=== PATIENT | female | born 1950 | race Caucasian/White ===

== ENCOUNTER 2016-05-17 19:49 | Inpatient (IN) | payer MEDICARE, OTHER ==
[2016-05-17 19:49] VITALS: BMI 25.7
[2016-05-17] MEDS ORDERED: Sodium Chloride 0.9% 1,000 ML IV STA (20:54)
[2016-05-17 21:37] LABS: BASO % 0.7 % (0.0-2.0); EOS # 0.2 K/uL (0.0-0.7); EOS % 3.3 % (0.0-4.0); HEMATOCRIT 31.9 % (34.0-47.0); LYMPH # 0.3 K/uL (1.0-4.3); LYMPH % 5.7 % (20.0-40.0); MEAN CELL VOLUME 64.1 fl (81.0-99.0); MEAN CORPUSCULAR HEMOGLOBIN 19.9 pg (27.0-31.0); MEAN CORPUSCULAR HGB CONC 31.1 g/dL (33.0-37.0); MEAN PLATELET VOLUME 10.4 fl (7.2-11.7); MONO # 0.6 K/uL (0.0-0.8); NEUT # 4.6 K/uL (1.8-7.0); NEUT % 80.3 % (50.0-75.0); NRBC % 0.2 % (0.0-0.0); PLATELET COUNT 147 K/uL (130-400); RED CELL DISTRIBUTION WIDTH 15.9 % (11.5-14.5); WHITE BLOOD COUNT 5.8 K/uL (4.8-10.8)
[2016-05-17 21:52] LABS: ALB/GLOB RATIO 1.3 (1.0-2.1); ALKALINE PHOSPHATASE 85 U/L (38-126); ALT/SGPT 37 U/L (9-52); AST/SGOT 36 U/L (14-36); BILIRUBIN,TOTAL 0.3 mg/dl (0.2-1.3); BLOOD UREA NITROGEN 23 mg/dl (7-17); CALCIUM 8.9 mg/dL (8.4-10.2); CARBON DIOXIDE 25 mmol/L (22-30); CHLORIDE 106 mmol/L (98-107); GFR AFRICAN-AMERICAN > 60; GLUCOSE,RANDOM 118 mg/dL (65-105); SODIUM 142 mmol/l (132-148); TOTAL PROTEIN 6.8 G/DL (6.3-8.2)
[2016-05-17 22:04] LABS: PARTIAL THROMBOPLASTIN TIME 28.5 SECONDS (23.3-32.5)
[2016-05-17 22:16] LABS: RBC URINE < 1 /hpf (0-3); URINE BILIRUBIN NEGATIVE (NEGATIVE); URINE BLOOD NEGATIVE (NEGATIVE); URINE COLOR YELLOW (YELLOW); URINE GLUCOSE (UA) NEG (Normal); URINE KETONE NEGATIVE (NEGATIVE); URINE LEUKOCYTE ESTERASE NEG Leu/uL (Negative); URINE PROTEIN NEGATIVE (NEGATIVE); URINE UROBILINOGEN 0.2-1.0 mg/dL (0.2-1.0); WBC URINE 1 /hpf (0-5)
[2016-05-17 22:24] LABS: EOSINOPHIL 4 % (0-7); NEUTROPHIL 77 % (42-75); TOTAL CELLS COUNTED 100
--- NOTE | 2016-05-17 22:40 | ED PDOC ---
HPI: Trauma/Fall - HPI Time Seen by Provider: 05/17/16 20:03 Chief Complaint (Nursing): High Blood Pressure Chief Complaint (Provider): fall History Per: Patient History/Exam Limitations: no limitations Injury Occurred (Timing): Just Before Arrival Additional Complaint(s): Aidee Perez is a 65 year old female, with a previous medical history of multiple sclerosis, who presents to the ED via EMS after sustaining a fall prior to arrival. Pt is usually ambulatory via walker. Pt was getting up from his chair and lost his balance and fell. Pt denies any head injury or loss of consciousness. Pt notes to experiencing body aches and a dry cough for the past few days. Pt denies any nausea, vomiting, diarrhea, chest pain or shortness of breath. Of note, pt is concerned about his blood pressure stating a usual bp of 110/70 but notes his blood pressure was elevated in the EMS. PMD: Dr. Castrejon Past Medical History Reviewed: Historical Data, Nursing Documentation, Vital Signs Vital Signs: Last Vital Signs Temp 99.5 F 05/18/16 22:00 Pulse 83 05/18/16 22:00 Resp 20 05/18/16 22:00 BP 142/68 05/18/16 22:00 Pulse Ox 99 05/19/16 00:54 - Medical History PMH: Fractures ("MY WHOLE BACK-I FALL ALOT-NO SURGERY"), Multiple Sclerosis ( "SECONDARY PROGRESSIVE"), Osteoporosis, Pneumonia (X2-LAST TIME WAS ABOUT 20YRS. AGO), Chronic Kidney Disease - Family History Family History: States: No Known Family Hx - Home Medications Home Medications: Ambulatory Orders Medication Instructions Recorded Dalfampridine [Ampyra] 10 mg PO BID 11/18/13 Dextromethorphan HBr/Quinidine 10 mg PO BID 11/18/13 [Nuedexta 20 mg-10 mg] Solifenacin Succinate [Vesicare] 10 mg PO HS 11/18/13 Nitrofurantoin Macrocrystals 50 mg PO HS 01/19/15 [Macrobid] Aspirin [Ecotrin] 81 mg PO HS 11/17/15 Cholecalciferol (Vitamin D3) 2,000 unit PO DAILY 11/17/15 [Vitamin D3] Folic Acid 1 mg PO DAILY 11/17/15 Sertraline HCl 150 mg PO HS 11/17/15 Teriflunomide [Aubagio] 14 mg PO HS 11/17/15 Modafinil [Provigil] 200 mg PO DAILY 05/18/16 Patient Own Control 1 unit PO DAILY 05/18/16 - Allergies Allergies/Adverse Reactions: Allergies Allergy/AdvReac Type Severity Reaction Status Date / Time EGG Allergy Intermediate VOMITING Verified 05/17/16 19:54 latex Allergy Intermediate RASH Verified 05/17/16 19:54 morphine Allergy Intermediate SHORTNESS Verified 05/17/16 19:54 OF BREATH Review of Systems ROS Statement: Except As Marked, All Systems Reviewed And Found Negative Constitutional: Negative for: Fever, Chills Cardiovascular: Negative for: Chest Pain Respiratory: Positive for: Cough. Negative for: Shortness of Breath, Sputum Physical Exam - Reviewed Nursing Documentation Reviewed: Yes Vital Signs Reviewed: Yes - Physical Exam Appears: Positive for: Well, Non-toxic, No Acute Distress Head Exam: Positive for: ATRAUMATIC, NORMAL INSPECTION, NORMOCEPHALIC Skin: Positive for: Normal Color, Warm, DRY Eye Exam: Positive for: EOMI, Normal appearance, PERRL ENT: Positive for: Other (tachy mucous membranes ) Neck: Positive for: Normal, Painless ROM Cardiovascular/Chest: Positive for: Regular Rate, Rhythm Respiratory: Positive for: Normal Breath Sounds Gastrointestinal/Abdominal: Positive for: Normal Exam, Bowel Sounds, Soft Back: Positive for: Normal Inspection Extremity: Positive for: Other (right foot drop. resting tremor of right arm ). Negative for: Calf Tenderness, Deformity, Swelling Neurologic/Psych: Positive for: Alert, Oriented - Laboratory Results Result Diagrams: 05/17/16 21:00 05/17/16 21:00 - ECG O2 Sat by Pulse Oximetry: 99 (RA) Pulse Ox Interpretation: Normal Medical Decision Making Medical Decision Making: Initial Impression: 65 year old female status post fall Initial Plan: * EKG * lact acid * creatine phosphokinase * Troponin I * urine dipstick * paritial thromboplastin time * prothromin time * CXR * IV NS 1,000 ml at 1,000 ml/hr * zofran * blood culture * urinalysis * influenza A B * reevaluation Scribe Attestation: Documented by Leonor Harrell, acting as a scribe for Wil Elliott MD. Provider Scribe Attestation: All medical record entries made by the Scribe were at my direction and personally dictated by me. I have reviewed the chart and agree that the record accurately reflects my personal performance of the history, physical exam, medical decision making, and the department course for this patient. I have also personally directed, reviewed, and agree with the discharge instructions and disposition. Disposition - Clinical Impression Clinical Impression: Multiple sclerosis exacerbation - Patient ED Disposition Is Patient to be Admitted: Yes Discussed With : Ashley Dang Counseled Patient/Family Regarding: Studies Performed, Diagnosis - Disposition Disposition Time: 00:00 Condition: STABLE - Pt Status Changed To: Hospital Disposition Of: Observation
--- NOTE | 2016-05-18 07:57 | CARD ---
APPROVED REPORT EKG Measurement Heart [id number] <Conclusion> Normal sinus rhythm Low voltage QRS Nonspecific ST and T wave abnormality Abnormal ECG
--- NOTE | 2016-05-18 10:30 | RAD ---
HISTORY: chest pain COMPARISON: Chest x-ray image performed 04/25/08 TECHNIQUE: Chest, one view. FINDINGS: Examination limited by habitus. LUNGS: Mild left basilar atelectasis. Please note that chest x-ray has limited sensitivity for the detection of pulmonary masses. PLEURA: No significant pleural effusion identified. No definite pneumothorax . CARDIOVASCULAR: Heart size appears top normal. Dense atherosclerotic calcifications of the aortic knob. OSSEOUS STRUCTURES: Osseous demineralization. Multilevel degenerative changes. VISUALIZED UPPER ABDOMEN: Unremarkable. OTHER FINDINGS: None. IMPRESSION: Mild left basilar atelectasis.
[2016-05-18] MEDS ORDERED: QUINIDINE PO SCH (17:00)
[2016-05-18] MEDS ORDERED: DEXTROMETHORPHAN HBR PO SCH (17:00)
[2016-05-18] MEDS: DEXTROMETHORPHAN HBR PO SCH (21:51)
[2016-05-18] MEDS: QUINIDINE PO SCH (21:51)
[2016-05-18] MEDS: TERIFLUNOMIDE 14 MG PO SCH (21:52)
[2016-05-18] MEDS: Nitrofurantoin 25 MG/5 ML SUSP PO SCH (21:53)
--- NOTE | 2016-05-19 00:47 | CP.PCM.HP ---
Past Patient History - Past Medical History & Family History Past Medical History?: Yes - Past Social History Smoking Status: Never Smoked - CARDIAC Hx Cardiac Disorders: No - PULMONARY Hx Respiratory Disorders: Yes Hx Pneumonia: Yes (X2-LAST TIME WAS ABOUT 20YRS. AGO) - NEUROLOGICAL Hx Neurological Disorder: Yes Hx Multiple Sclerosis: Yes ("SECONDARY PROGRESSIVE") - HEENT Hx HEENT Problems: Yes Hx Cataracts: Yes (BILAT. -NO SURGERY YET) - RENAL Hx Chronic Kidney Disease: Yes Hx Neurogenic Bladder: Yes - ENDOCRINE/METABOLIC Hx Endocrine Disorders: No - HEMATOLOGICAL/ONCOLOGICAL Hx Blood Disorders: No - INTEGUMENTARY Hx Dermatological Problems: Yes Other/Comment: HX:MASS RIGHT INDEX FINGER - MUSCULOSKELETAL/RHEUMATOLOGICAL Hx Musculoskeletal Disorders: Yes Hx Falls: Yes Hx Fractures: Yes ("MY WHOLE BACK-I FALL ALOT-NO SURGERY") Hx Osteoporosis: Yes - GASTROINTESTINAL Hx Gastrointestinal Disorders: Yes ("CONSTIPATION") - GENITOURINARY/GYNECOLOGICAL Hx Genitourinary Disorders: No Other/Comment: neurogenis bladder. - PSYCHIATRIC Hx Psychophysiologic Disorder: No Hx Substance Use: No - SURGICAL HISTORY Hx Surgeries: Yes Hx Tubal Ligation: Yes Other/Comment: EXPLORATORY LAPS. CYSTOSCOPIES - ANESTHESIA Hx Anesthesia: Yes Hx Anesthesia Reactions: No Hx Malignant Hyperthermia: No Meds Allergies/Adverse Reactions: Allergies Allergy/AdvReac Type Severity Reaction Status Date / Time EGG Allergy Intermediate VOMITING Verified 05/17/16 19:54 latex Allergy Intermediate RASH Verified 05/17/16 19:54 morphine Allergy Intermediate SHORTNESS Verified 05/17/16 19:54 OF BREATH Results - Vital Signs Recent Vital Signs: Last Vital Signs Temp 99.5 F 05/18/16 22:00 Pulse 83 05/18/16 22:00 Resp 20 05/18/16 22:00 BP 142/68 05/18/16 22:00 Pulse Ox 97 05/18/16 22:00 - Labs Result Diagrams: 05/17/16 21:00 05/17/16 21:00
[2016-05-19 03:44] LABS: URINE BACTERIA OCC (<OCC); WBC CLUMPS MOD /hpf
--- NOTE | 2016-05-19 06:24 | CON ---
DATE: 05/18/2016 REASON FOR CONSULTATION: Possible multiple sclerosis exacerbation. CHIEF COMPLAINT: The patient was brought in to [facility] with a history of f all. From a neurological point of view, to assess her for further management. HISTORY OF PRESENT ILLNESS: The patient is a 65-year-old right-handed female who has been known diagnosis of multiple sclerosis in 1981, with the symptom of tingling and numbness sensation of her feet and arm. She had a spinal tap and she did have a MRI of the brain and the spine, which did not do any conclusive evidence of multiple sclerosis. Because of the symptoms, which was progressiv e in nature, the patient was diagnosed as demyelinating disease, she has been on Tysabri for more mark n 10 years, which was discontinued because dizziness was positive and ever since she has been on [place] goldie. At present, she has been using a walker for ambulation. She claims that she has in her usual s [facility]. She tried to spanish moss picker a tissue on the floor and she lost balance and dropped on the f sue. She could not able to get up by herself. She called the Emergency button, and got help from t he [employer] guys and helped her out, who brought her into [facility] for further manageme nt. No history of preceding fever, no history of preceding cough or cold, no history of preceding viral i llness or fever. PAST MEDICAL HISTORY: As stated above. ALLERGIES: EGG, LATEX AND MORPHINE INCLUDING STEROIDS. REVIEW OF SYSTEMS: As per H and P. MEDICATIONS: Provigil, Nuedexta, Ampyra, vitamin D, sertraline, folic acid, Aubagio, Macrobid and VE SIcare. PHYSICAL EXAMINATION: VITAL SIGNS: Blood pressure 152/75, mean arterial pressure of 100, respiratory rate 16, temperature afebrile. NECK: Supple. No carotid bruit. HEART: Sounds are regular. CHEST: Fair air entry. EXTREMITIES: No edema in legs. NEUROLOGIC EXAMINATION: MENTAL STATUS EXAMINATION: She is awake, alert, oriented to person, place, and time. No problems wi th speech. No sign of depression. No sign of hallucinations. CRANIAL NERVES: Visual gonzalez intact. No afferent pupillary defect. Pupils reactive to light. No nystagmus on primary gaze. All extraocular movements are intact. No facial sensory deficit. No fac ial asymmetry. Hearing is normal. Tongue is midline. The patient does have choreic movement on the right side, which is noticeable and uncontrollable . MOTOR: On outstretched hand with eyes closed her right arm rhythmic movements are noted. Left arm i s straight. DEEP TENDON REFLEXES: Hyperreflexic on the left side, right side was 1+. Left leg clonus noted. Ri ght leg increased tone with foot drop. Both plantars are upgoing. SENSORY EXAMINATION: Posterior column is impaired on examination of the sensory system. COORDINATION: [id number] dysmetria grossly seen on her right side. 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 The patient is also suffering from mild sensory and motor neuropathy. LABORATORY DATA: WBC 5.8, hemoglobin 9.9, hematocrit 31.9, platelet 147. PT 11.2, INR 1.08, PTT 28. 5. Sodium 142, potassium 4.0, chloride 106, bicarbonate 25, BUN 23, creatinine 0.7, GFR more than 60 . Random glucose 118. Urinalysis: No evidence of infectious source. Chest x-ray shows mild left basilar atelectasis. RECOMMENDATIONS: 1. I do not think the patient does have MS exacerbation; however, she does have a history of fever w ith atelectasis in the x-ray. The patient may need appropriate antibiotics. 2. Proper hydration. 3. Continue all other medications she has been taking. 4. Out of bed and physical therapy. Keep her on fall precaution. DVT prophylaxis should be given. 5. MRI of the brain and cervical spine with gadolinium should exclude or include any pathology. The patient can be benefited to have a paraneoplastic syndrome workup; however, I doubt she has it. The patient will be followed closely with you. Terrell Perera MD cc: [id number] TT: 05/18/2016 20:15:47 Confirmation # [id number] Dictation # [id number] dn 05/19/2016 05:23:49
[2016-05-19 08:24] LABS: HEMATOCRIT 32.3 % (34.0-47.0); MEAN CORPUSCULAR HEMOGLOBIN 19.8 pg (27.0-31.0); MEAN CORPUSCULAR HGB CONC 30.9 g/dL (33.0-37.0); RED CELL DISTRIBUTION WIDTH 15.7 % (11.5-14.5); WHITE BLOOD COUNT 5.5 K/uL (4.8-10.8)
[2016-05-19 08:28] LABS: BLOOD UREA NITROGEN 14 mg/dl (7-17); CALCIUM 8.6 mg/dL (8.4-10.2); CARBON DIOXIDE 27 mmol/L (22-30); CHLORIDE 102 mmol/L (98-107); GFR AFRICAN-AMERICAN > 60; GLUCOSE,RANDOM 86 mg/dL (65-105); SODIUM 140 mmol/l (132-148)
[2016-05-19] MEDS: DEXTROMETHORPHAN HBR PO SCH ×2 (08:32→22:40)
[2016-05-19] MEDS: QUINIDINE PO SCH ×2 (08:32→22:40)
[2016-05-19] MEDS: Enoxaparin 40 mg Syringe SC SCH (08:33)
[2016-05-19] MEDS ORDERED: Gadodiamide 287 MG/ML VIAL (15ML) IV ONE (10:03)
[2016-05-19 10:51] LABS: MEAN CELL VOLUME 64.1 fl (81.0-99.0)
[2016-05-19] MEDS: TERIFLUNOMIDE 14 MG PO SCH (21:57)
[2016-05-19] MEDS: Nitrofurantoin 25 MG/5 ML SUSP PO SCH (21:58)
--- NOTE | 2016-05-20 00:23 | CP.PCM.PN ---
Subjective - Date & Time of Evaluation Date of Evaluation: 05/19/16 Time of Evaluation: 19:00 Objective - Vital Signs/Intake and Output Vital Signs (last 24 hours): Temp Pulse Resp BP Pulse Ox 99 F 84 20 150/78 95 05/19/16 22:38 05/19/16 22:38 05/19/16 22:38 05/19/16 22:38 05/19/16 22:38 - Medications Medications: Current Medications Acetaminophen (Tylenol 325mg Tab) 650 mg PO Q4 PRN PRN Reason: Fever >100.4 F Last Admin: 05/19/16 17:16 Dose: 650 mg Aspirin (Ecotrin) 81 mg PO [facility] Last Admin: 05/19/16 21:55 Dose: 81 mg Enoxaparin Sodium (Lovenox) 40 mg SC DAILY [facility] PRN Reason: Protocol Last Admin: 05/19/16 08:33 Dose: 40 mg Folic Acid (Folic Acid) 1 mg PO DAILY [facility] Last Admin: 05/19/16 08:29 Dose: 1 mg Home Med (Solifenacin Succinate [Vesicare]) 10 mg PO [facility] Last Admin: 05/19/16 21:56 Dose: 10 mg Home Med (Teriflunomide [Aubagio]) 14 mg PO [facility] Last Admin: 05/19/16 21:57 Dose: 14 mg Home Med (Dalfampridine [Ampyra]) 10 mg PO 0900,2200 [facility] Last Admin: 05/19/16 22:40 Dose: 10 mg Home Med (Dextromethorphan Hbr/Quinidine [Nuedexta 20-10 Mg Capsule]) 1 mg PO 0900,2200 [facility] Last Admin: 05/19/16 22:40 Dose: 1 mg Levofloxacin/Dextrose (Levaquin 750mg) 150 mls @ 100 mls/hr IVPB DAILY [facility] Last Admin: 05/19/16 08:33 Dose: 100 mls/hr Modafinil (Provigil) 200 mg PO DAILY [facility] Last Admin: 05/19/16 13:00 Dose: Not Given Nitrofurantoin (Nitrofurantoin) 50 mg PO [facility] Last Admin: 05/19/16 21:58 Dose: 50 mg Sertraline HCl (Zoloft) 150 mg PO [facility] Last Admin: 05/19/16 21:59 Dose: 150 mg - Labs Labs: 05/19/16 07:00 05/19/16 07:00 PT 11.2 SECONDS (9.6-11.2) 05/17/16 21:00 INR 1.08 (0.92-1.08) 05/17/16 21:00 APTT 28.5 SECONDS (23.3-32.5) 05/17/16 21:00
--- NOTE | 2016-05-20 07:24 | MRI ---
PROCEDURE: MRI BRAIN WITH AND WITHOUT CONTRAST HISTORY: DEMYELINATING DISEASE COMPARISON: 11/30/2015 TECHNIQUE: Multiplanar, multisequence MR images of the brain were obtained with and without intravenous contrast enhancement. FINDINGS: HEMORRHAGE: None DWI: No evidence of an acute or early subacute infarction. BRAIN PARENCHYMA: No mass,mass effect or edema. No significant change in extensive nonspecific periventricular white matter signal abnormality. ENHANCEMENT: No abnormal intracranial enhancement. VENTRICLES: Unremarkable. No hydrocephalus. CRANIUM: Unremarkable. ORBITS: Grossly unremarkable. PARANASAL SINUSES/MASTOIDS: Clear VASCULAR SYSTEM: Skull base flow voids intact. OTHER FINDINGS: None . IMPRESSION: No significant change in extensive nonspecific periventricular white matter signal abnormality.
--- NOTE | 2016-05-20 07:28 | MRI ---
PROCEDURE: MR CERVICAL SPINE WITH AND WITHOUT CONTRAST HISTORY: DEMYELINATION COMPARISON: 09/14/2009 TECHNIQUE: Multiecho multiplanar sequences were performed through the cervical spine with and without the use of intravenous contrast. FINDINGS: Normal lordotic curvature. Craniocervical junction unremarkable. Vertebral body heights preserved. No marrow signal abnormality. Normal cervical cord. No paraspinal abnormality. No abnormal enhancement C2-3: No disc herniation, spinal canal stenosis or neural foraminal narrowing. C3-4: No disc herniation, spinal canal stenosis or neural foraminal narrowing. C4-5: No disc herniation, spinal canal stenosis or neural foraminal narrowing. C5-C6: Disc bulge with thecal sac indentation. C6-C7: No disc herniation, spinal canal stenosis or neuroforaminal narrowing. C7-T1: No disc herniation, spinal canal stenosis or neural foraminal narrowing. OTHER FINDINGS: None. IMPRESSION: C5-6 disc bulge with thecal sac indentation. No gross abnormal cord signal or abnormal enhancement. No significant interval change since prior exam. Limited by motion artifact.
[2016-05-20 08:33] VITALS: RESP 20
[2016-05-20] MEDS: Enoxaparin 40 mg Syringe SC SCH (08:54)
[2016-05-20] MEDS: QUINIDINE PO SCH ×2 (08:57→21:56)
[2016-05-20] MEDS: DEXTROMETHORPHAN HBR PO SCH ×2 (08:57→21:56)
--- NOTE | 2016-05-20 12:10 | PN ---
DATE: 05/20/2016 NEUROLOGICAL PROBLEM: Multiple sclerosis, manifesting with spinocerebellar degeneration. PHYSICAL EXAMINATION: VITAL SIGNS: Blood pressure 147/81, mean arterial pressure 103, respiratory rate 16, temperature 98.5, pulse rate 81 and regular. The patient does not seem to be the MS exacerbation . The patient seems to be a little constipated and with pain all over the body. Her examination is unchanged to compare with my previous examination. WORKUP: MRI of the brain showed periventricular nonspecific changes noted. Cervical spine also showed no radiculopathy or spinal cord structural pathology. Her urine shows moderate bacteria. RECOMMENDATIONS: Continue hydration. Get her out of the bed. DVT prophylaxis. Continue all medications as she has been taking for her preexisting diagnosed multiple sclerosis. For the spasm, baclofen can be added and increased as she has been tolerating. The patient will be followed closely with you. Terrell Perera MD cc: [id number] TT: 05/20/2016 12:10:05 Confirmation # [id number] Dictation # [id number] MTDD
[2016-05-20] MEDS: Nitrofurantoin 25 MG/5 ML SUSP PO SCH (21:57)
[2016-05-20] MEDS: TERIFLUNOMIDE 14 MG PO SCH (21:57)
--- NOTE | 2016-05-20 22:54 | CP.PCM.PN ---
Subjective - Date & Time of Evaluation Date of Evaluation: 05/20/16 Time of Evaluation: 19:05 Objective - Vital Signs/Intake and Output Vital Signs (last 24 hours): Temp Pulse Resp BP Pulse Ox 98.5 F 81 20 147/81 93 L 05/20/16 08:29 05/20/16 08:29 05/20/16 08:29 05/20/16 08:29 05/20/16 08:29 - Medications Medications: Current Medications Acetaminophen (Tylenol 325mg Tab) 650 mg PO Q4 PRN PRN Reason: Fever >100.4 F Last Admin: 05/19/16 17:16 Dose: 650 mg Aspirin (Ecotrin) 81 mg PO [facility] Last Admin: 05/20/16 21:55 Dose: 81 mg Baclofen (Lioresal) 10 mg PO TID [facility] Last Admin: 05/20/16 19:34 Dose: 10 mg Enoxaparin Sodium (Lovenox) 40 mg SC DAILY [facility] PRN Reason: Protocol Last Admin: 05/20/16 08:54 Dose: 40 mg Folic Acid (Folic Acid) 1 mg PO DAILY [facility] Last Admin: 05/20/16 08:57 Dose: 1 mg Home Med (Solifenacin Succinate [Vesicare]) 10 mg PO [facility] Last Admin: 05/20/16 21:56 Dose: 10 mg Home Med (Teriflunomide [Aubagio]) 14 mg PO [facility] Last Admin: 05/20/16 21:57 Dose: 14 mg Home Med (Dalfampridine [Ampyra]) 10 mg PO 0900,2200 [facility] Last Admin: 05/20/16 21:57 Dose: 10 mg Home Med (Dextromethorphan Hbr/Quinidine [Nuedexta 20-10 Mg Capsule]) 1 mg PO 0900,2200 [facility] Last Admin: 05/20/16 21:56 Dose: 1 mg Levofloxacin/Dextrose (Levaquin 750mg) 150 mls @ 100 mls/hr IVPB DAILY [facility] Last Admin: 05/20/16 08:58 Dose: 100 mls/hr Modafinil (Provigil) 200 mg PO DAILY [facility] Last Admin: 05/20/16 09:13 Dose: 200 mg Nitrofurantoin (Nitrofurantoin) 50 mg PO [facility] Last Admin: 05/20/16 21:57 Dose: 50 mg Sertraline HCl (Zoloft) 150 mg PO HS [facility] Last Admin: 05/20/16 21:57 Dose: 150 mg - Labs Labs: 05/19/16 07:00 05/19/16 07:00 PT 11.2 SECONDS (9.6-11.2) 05/17/16 21:00 INR 1.08 (0.92-1.08) 05/17/16 21:00 APTT 28.5 SECONDS (23.3-32.5) 05/17/16 21:00
[2016-05-21] MEDS: Enoxaparin 40 mg Syringe SC SCH (08:55)
[2016-05-21] MEDS: DEXTROMETHORPHAN HBR PO SCH ×2 (08:58→21:16)
[2016-05-21] MEDS: QUINIDINE PO SCH ×2 (08:58→21:16)
[2016-05-21 10:40] LABS: HEMATOCRIT 33.3 % (34.0-47.0); MEAN CORPUSCULAR HEMOGLOBIN 19.8 pg (27.0-31.0); MEAN CORPUSCULAR HGB CONC 30.9 g/dL (33.0-37.0); RED CELL DISTRIBUTION WIDTH 15.9 % (11.5-14.5)
[2016-05-21 10:55] LABS: BLOOD UREA NITROGEN 18 mg/dl (7-17); CHLORIDE 99 mmol/L (98-107); GFR AFRICAN-AMERICAN > 60; GLUCOSE,RANDOM 119 mg/dL (65-105); SODIUM 137 mmol/l (132-148)
[2016-05-21 11:03] LABS: CALCIUM 8.4 mg/dL (8.4-10.2); CARBON DIOXIDE 27 mmol/L (22-30)
[2016-05-21] MEDS ORDERED: Potassium Chloride 20 mEq ER Tab PO ONE (11:51)
[2016-05-21 16:46] VITALS: O2SAT 95
[2016-05-21] MEDS: TERIFLUNOMIDE 14 MG PO SCH (21:15)
[2016-05-21] MEDS: Nitrofurantoin 25 MG/5 ML SUSP PO SCH (21:17)
--- NOTE | 2016-05-22 00:34 | CP.PCM.PN ---
Subjective - Date & Time of Evaluation Date of Evaluation: 05/21/16 Time of Evaluation: 16:50 Objective - Vital Signs/Intake and Output Vital Signs (last 24 hours): Temp Pulse Resp BP Pulse Ox 98.3 F 83 20 121/72 95 05/21/16 20:49 05/21/16 20:49 05/21/16 20:49 05/21/16 20:49 05/21/16 20:49 - Medications Medications: Current Medications Acetaminophen (Tylenol 325mg Tab) 650 mg PO Q4 PRN PRN Reason: Fever >100.4 F Last Admin: 05/19/16 17:16 Dose: 650 mg Aspirin (Ecotrin) 81 mg PO [facility] Last Admin: 05/21/16 21:16 Dose: 81 mg Baclofen (Lioresal) 10 mg PO TID [facility] Last Admin: 05/21/16 16:45 Dose: 10 mg Enoxaparin Sodium (Lovenox) 40 mg SC DAILY [facility] PRN Reason: Protocol Last Admin: 05/21/16 08:55 Dose: 40 mg Folic Acid (Folic Acid) 1 mg PO DAILY [facility] Last Admin: 05/21/16 08:59 Dose: 1 mg Home Med (Solifenacin Succinate [Vesicare]) 10 mg PO [facility] Last Admin: 05/21/16 21:14 Dose: 10 mg Home Med (Teriflunomide [Aubagio]) 14 mg PO [facility] Last Admin: 05/21/16 21:15 Dose: 14 mg Home Med (Dalfampridine [Ampyra]) 10 mg PO 0900,2200 [facility] Last Admin: 05/21/16 21:15 Dose: 10 mg Home Med (Dextromethorphan Hbr/Quinidine [Nuedexta 20-10 Mg Capsule]) 1 mg PO 0900,2200 [facility] Last Admin: 05/21/16 21:16 Dose: 1 mg Levofloxacin/Dextrose (Levaquin 750mg) 150 mls @ 100 mls/hr IVPB DAILY [facility] Last Admin: 05/21/16 08:53 Dose: 100 mls/hr Modafinil (Provigil) 200 mg PO DAILY [facility] Last Admin: 05/21/16 09:09 Dose: 200 mg Nitrofurantoin (Nitrofurantoin) 50 mg PO [facility] Last Admin: 05/21/16 21:17 Dose: 50 mg Sertraline HCl (Zoloft) 150 mg PO HS [facility] Last Admin: 05/21/16 21:16 Dose: 150 mg - Labs Labs: 05/21/16 10:05 05/21/16 15:38 PT 11.2 SECONDS (9.6-11.2) 05/17/16 21:00 INR 1.08 (0.92-1.08) 05/17/16 21:00 APTT 28.5 SECONDS (23.3-32.5) 05/17/16 21:00
[2016-05-22] MEDS: DEXTROMETHORPHAN HBR PO SCH (08:40)
[2016-05-22] MEDS: QUINIDINE PO SCH (08:40)
[2016-05-22] MEDS: Enoxaparin 40 mg Syringe SC SCH (08:41)
--- NOTE | 2016-05-22 12:17 | CP.PCM.DIS ---
Provider - Provider Date of Admission: 05/18/16 13:06 Attending physician: Ashley Dang MD Time Spent in preparation of Discharge (in minutes): 30 Hospital Course - Lab Results Lab Results: Micro Results 05/19/16 04:14 Urine,Catheterized Urine Culture - Final Escherichia Coli Most Recent Lab Values WBC 4.0 K/uL (4.8-10.8) L 05/21/16 10:05 RBC 5.21 Mil/uL (3.80-5.20) H 05/21/16 10:05 Hgb 10.3 g/dL (12.0-16.0) L 05/21/16 10:05 Hct 33.3 % (34.0-47.0) L 05/21/16 10:05 MCV 64.0 fl (81.0-99.0) L 05/21/16 10:05 MCH 19.8 pg (27.0-31.0) L 05/21/16 10:05 MCHC 30.9 g/dL (33.0-37.0) L 05/21/16 10:05 RDW 15.9 % (11.5-14.5) H 05/21/16 10:05 Plt Count 86 K/uL (130-400) L D 05/21/16 10:05 MPV 10.4 fl (7.2-11.7) 05/17/16 21:00 Neut % (Auto) 80.3 % (50.0-75.0) H 05/17/16 21:00 Lymph % (Auto) 5.7 % (20.0-40.0) L 05/17/16 21:00 Mckinley % (Auto) 10.0 % (0.0-10.0) 05/17/16 21:00 Eos % (Auto) 3.3 % (0.0-4.0) 05/17/16 21:00 Baso % (Auto) 0.7 % (0.0-2.0) 05/17/16 21:00 Neut # 4.6 K/uL (1.8-7.0) 05/17/16 21:00 Lymph # 0.3 K/uL (1.0-4.3) L 05/17/16 21:00 Mckinley # 0.6 K/uL (0.0-0.8) 05/17/16 21:00 Eos # 0.2 K/uL (0.0-0.7) 05/17/16 21:00 Baso # 0.0 K/uL (0.0-0.2) 05/17/16 21:00 Neutrophils % (Manual) 77 % (42-75) H 05/17/16 21:00 Band Neutrophils % 2 % (0-2) 05/17/16 21:00 Lymphocytes % (Manual) 7 % (20-50) L 05/17/16 21:00 Monocytes % (Manual) 10 % (0-10) 05/17/16 21:00 Eosinophils % (Manual) 4 % (0-7) 05/17/16 21:00 Platelet Estimate Normal (NORMAL) 05/17/16 21:00 Hypochromasia (manual) Moderate 05/17/16 21:00 Poikilocytosis (manual Slight 05/17/16 21:00 Anisocytosis (manual) Moderate 05/17/16 21:00 Microcytosis (manual) Moderate 05/17/16 21:00 Tear Drop Cells Slight 05/17/16 21:00 ESR 21 mm/hr (0-30) 05/19/16 07:00 PT 11.2 SECONDS (9.6-11.2) 05/17/16 21:00 INR 1.08 (0.92-1.08) 05/17/16 21:00 APTT 28.5 SECONDS (23.3-32.5) 05/17/16 21:00 Sodium 137 mmol/l (132-148) 05/21/16 10:05 Potassium 4.2 MMOL/L (3.6-5.0) 05/21/16 15:38 Chloride 99 mmol/L (98-107) 05/21/16 10:05 Carbon Dioxide 27 mmol/L (22-30) 05/21/16 10:05 Anion Gap 14 (10-20) 05/21/16 10:05 BUN 18 mg/dl (7-17) H 05/21/16 10:05 Creatinine 0.7 mg/dL (0.7-1.2) 05/21/16 10:05 Est GFR ( Amer) > 60 05/21/16 10:05 Est GFR (Non-Af Amer) > 60 05/21/16 10:05 Random Glucose 119 mg/dL (65-105) H 05/21/16 10:05 Lactic Acid 1.1 MMOL/L (0.7-2.1) 05/17/16 21:00 Calcium 8.4 mg/dL (8.4-10.2) 05/21/16 10:05 Total Bilirubin 0.3 mg/dl (0.2-1.3) 05/17/16 21:00 AST 36 U/L (14-36) D 05/17/16 21:00 ALT 37 U/L (9-52) 05/17/16 21:00 Alkaline Phosphatase 85 U/L (38-126) 05/17/16 21:00 Total Creatine Kinase 56 U/L (30-135) 05/17/16 21:00 Troponin I 0.0180 ng/mL (0.00-0.120) 05/17/16 21:00 C-React Prot High Sens 9.85 mg/L (1.00-3.00) H 05/19/16 07:00 Total Protein 6.8 G/DL (6.3-8.2) 05/17/16 21:00 Albumin 3.8 g/dL (3.5-5.0) 05/17/16 21:00 Globulin 3.0 gm/dL (2.2-3.9) 05/17/16 21:00 Albumin/Globulin Ratio 1.3 (1.0-2.1) 05/17/16 21:00 Urine Color Yellow (YELLOW) 05/17/16 22:11 Urine Clarity Clear (Clear) 05/17/16 22:11 Urine pH 7.0 (5.0-8.0) 05/17/16 22:11 Ur Specific Mcbee 1.023 (1.003-1.030) 05/17/16 22:11 Urine Protein Negative mg/dL (NEGATIVE) 05/17/16 22:11 Urine Glucose (UA) Neg mg/dL (Normal) 05/17/16 22:11 Urine Ketones Negative mg/dL (NEGATIVE) 05/17/16 22:11 Urine Blood Negative (NEGATIVE) 05/17/16 22:11 Urine Nitrate Negative (NEGATIVE) 05/17/16 22:11 Urine Bilirubin Negative (NEGATIVE) 05/17/16 22:11 Urine Urobilinogen 0.2-1.0 mg/dL (0.2-1.0) 05/17/16 22:11 Ur Leukocyte Esterase Neg Lucian/uL (Negative) 05/17/16 22:11 Urine RBC (Auto) < 1 /hpf (0-3) 05/17/16 22:11 Urine WBC Clumps (Auto) Mod /hpf (NONE) H 05/17/16 22:11 Urine Microscopic WBC 1 /hpf (0-5) 05/17/16 22:11 Ur Squamous Epith Cells < 1 /hpf (0-5) 05/17/16 22:11 Urine Bacteria Occ (<OCC) H 05/17/16 22:11 Urine Yeast (Budding) Few /hpf (NEGATIVE) H 05/17/16 22:11 Influenza Typ A,B (EIA) Negative for flu a/b (NEGATIVE) 05/17/16 21:10 Discharge Exam - Head Exam Head Exam: ATRAUMATIC, NORMAL INSPECTION, NORMOCEPHALIC Discharge Plan - Discharge Medications Prescriptions: levoFLOXacin 750 mg in D5W [Levaquin 750MG] 750 mg IVPB DAILY #7 bag - Follow Up Plan Condition: STABLE Disposition: REHAB FACILITY/REHAB UNIT Additional Instructions: patient cleared for discharge to Acute Rehab today by cont. Levaqun IV for UTI monitor cbc, bmp cont. PT/OT
[2016-05-22 16:34] VITALS: BP 112/72; PULSE 73; TEMP 98.4
[2016-05-22] MEDS ORDERED: QUINIDINE PO SCH (22:00)
[2016-05-22] MEDS ORDERED: DEXTROMETHORPHAN PO SCH (22:00)
--- NOTE | 2016-05-23 11:09 | PQF GENQUE ---
Dr. Dang pt was admitted after a fall and for possible multiple sclerosis exacerbation. According to neurology consult pt is not currently in ms exacerbation. After study what is the final diagnosis for this case? This form is a permanent part of the medical record Clarification of your documentation is requested to better reflect the severity of illness and intensity of treatment of your patient. Indicators present [] Specify: [] [] Specify: [] [] Specify: [] [] Specify: [] Location in the medical record that reflects the above clinical findings: [] Treatment Provided: [] PHYSICIAN'S RESPONSE Based on your medical judgment of the clinical indicators outlined above please clarify the following: [] Practitioner response [] If unable to determine, please check the box, sign and date. Present On Admission (POA) Indicator: [] Present at the time of admission [] Not present at the time of admission [] Clinically Undetermined In responding to this query, please exercise your independent professional judgment. The fact that a question is asked does not imply that any particular answer is desired or expected. Thank you for your clarification on this documentation. 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
== END 2016-05-22 17:14 | DRG 194 ==
LOC: H.ER 19:49 → H.ERHOLD 05-18 00:44 → H.MEDSURG1 05-18 03:15 → OBSVTOIN 05-18 13:06
PROVIDERS: ADMIT Internal Medicine; ATTEND Internal Medicine
DX: J18.9 Pneumonia, unspecified organism (principal); N39.0 Urinary tract infection, site not specified; G35 Multiple sclerosis; G62.9 Polyneuropathy, unspecified; Z88.5 Allergy status to narcotic agent; Z91.012 Allergy to eggs; Z91.040 Latex allergy status; B96.20 Unspecified Escherichia coli [E. coli] as the cause of diseases classified elsewhere; N18.9 Chronic kidney disease, unspecified; M81.0 Age-related osteoporosis without current pathological fracture

== ENCOUNTER 2016-05-22 12:08 | Inpatient (IN) | payer MEDICARE, OTHER ==
[2016-05-22 17:02] VITALS: BMI 24.7
[2016-05-22] MEDS: Nitrofurantoin 25 MG/5 ML SUSP PO SCH (21:25)
[2016-05-22] MEDS: DEXTROMETHORPHAN HBR PO SCH (21:46)
[2016-05-22] MEDS: QUINIDINE PO SCH (21:46)
[2016-05-22] MEDS: TERIFLUNOMIDE 14 MG PO SCH (21:46)
[2016-05-23] MEDS: levoFLOXacin 750 mg in D5W 150 ML BAG IVPB SCH (05:15)
[2016-05-23] MEDS: DEXTROMETHORPHAN HBR PO SCH ×2 (08:26→21:30)
[2016-05-23] MEDS: QUINIDINE PO SCH ×2 (08:26→21:30)
[2016-05-23] MEDS ORDERED: guaiFENesin 100 mg/5 ml Syrup UD PO PRN (11:42)
--- NOTE | 2016-05-23 12:08 | PSY.TMCNF ---
Nursing - Vital Signs Vital Signs (Last 8 hours): Vital Signs 05/23/16 05/23/16 05/23/16 08:37 08:40 11:48 Temperature 98.2 F 98.2 F Pulse Rate 86 86 83 Respiratory 20 20 Rate Blood Pressure 133/60 133/60 O2 Sat by Pulse 96 95 Oximetry Pain: 0 - Precautions: Precautions: Fall Prevention - Medications/Other Issues Comment: To follow as per nutrition protocol - Consults Comment: Dr. Nieto-Doreen - Toileting Toileting: Dependent - Bladder Management Bladder Pattern: Incontinent Voiding Method: Diaper Bladder Management: Dependent Frequency of Accidents: >5 - Bowel Management Bowel Pattern: Normal Bowel Management: Dependent Frequency of Accidents: 1 - Transfers Transfers: Maximal Assistance - ADL's ADL's: Maximal Assistance - Patient/Family Teaching Comments: Care with MS and safety precautions - Goals/Time Frame Comments: Per multidisciplinary care plan and goals Physical Therapy - Bed Mobility Bed Mobility: Moderate Assistance - Transfers Wheelchair to Mat: Verbal Cues, Moderate Assistance Sit to Stand: Verbal Cues, Minimal Assistance - Ambulation Level of Assistance: Verbal Cues, Minimal Assistance Distance (ft.): 30 Assistive Devices: Rolling Walker Orthoses: R AFO - Stair Negotiation Stairs: Level of Assistance: Not Tested - Standing Balance Static Stand: Contact Guard Assist Dynamic Stand: Minimal Assistance, Moderate Assistance - Insight/Carryover Insight/Carryover: Good - Patient/Family Education Comment: Pt education provided for increased safety awareness and proper techniques during functional mobility tasks. Educated pt on role of PT, PT goals , therapy schedule, and safety. - Assessment/Plan Assessment: Pt requires mod A for bed mobility, min/mod A for functional transfers, and min A for ambulating up to 30 ft with RW. Pt demonstrates impaired RLE strength, standing balance, and endurance resulting in decreased (I ) with funcitonal mobility tasks. Pt will benefit from PT intervention to address defictis, reduce fall risk, and maximize functional independence. - Goals Timeframe: 3 weeks Goals: Bed mobility mod I. Sit < > stand and bed < > chair transfers mod I with RW. Ambulate 150 ft with RW mod I - Provider Therapist: Alicia Ca PT, DPT License Number: [id number] Occupational Therapy - Arousal/Attention/Orientation Patient Orientation: Person, Place, Time - Insight/Carryover Insight/Carryover: Good - Patient/Family Education Comment: Pt education provided for increased safety awareness and proper techniques during functional mobility tasks. Educated pt on role of PT, PT goals , therapy schedule, and safety. - Assessment/Plan Assessment: Pt requires mod A for bed mobility, min/mod A for functional transfers, and min A for ambulating up to 30 ft with RW. Pt demonstrates impaired RLE strength, standing balance, and endurance resulting in decreased (I ) with funcitonal mobility tasks. Pt will benefit from PT intervention to address defictis, reduce fall risk, and maximize functional independence. - Goals Timeframe: 3 weeks Goals: Bed mobility mod I. Sit < > stand and bed < > chair transfers mod I with RW. Ambulate 150 ft with RW mod I Speech Therapy - Plan Assessment: Pt requires mod A for bed mobility, min/mod A for functional transfers, and min A for ambulating up to 30 ft with RW. Pt demonstrates impaired RLE strength, standing balance, and endurance resulting in decreased (I ) with funcitonal mobility tasks. Pt will benefit from PT intervention to address defictis, reduce fall risk, and maximize functional independence. Recreational Therapy - Assessment Assessment/Plan: Pt requires mod A for bed mobility, min/mod A for functional transfers, and min A for ambulating up to 30 ft with RW. Pt demonstrates impaired RLE strength, standing balance, and endurance resulting in decreased (I ) with funcitonal mobility tasks. Pt will benefit from PT intervention to address defictis, reduce fall risk, and maximize functional independence. Nutrition - Current Diet Current Diet/ Supplement/ Feedings: Regular diet - Appetite Percent Meal Consumed: 75-100% - Comments Comments: Care with MS and safety precautions - Assessment/Goals/Time Frame Assessment/Goals/Time Frame: To follow as per nutrition protocol - Provider Provider: Marissa Barrios RD Case Management - Discharge Plan Discharge Plan: Home alone Rehabilitation Plan - Treatment Plan Treatment Plan: Physical Therapy, Occupational Therapy, Dietary, Patient/Family Education - Recommendation Recommendation: Physical Therapy, Occupational Therapy, Dietary, Patient/Family Education - Discharge Plan Discharge to: Home
[2016-05-23] MEDS: Albuterol-Ipratrop 3 mg / 0.5 (3 ml) UD INH PRN (13:11)
--- NOTE | 2016-05-23 13:34 | CP.PCM.CON ---
History of Present Illness - History of Present Illness History of Present Illness: 65 year old female patient with complains of weakness especially the right side , status post fall Review of Systems - Musculoskeletal Musculoskeletal: Abnormal Gait, Muscle Weakness - Neurological Neurological: Abnormal Gait, Lack of Coordination Past Patient History - Past Medical History & Family History Past Medical History?: Yes - Past Social History Smoking Status: Never Smoked - CARDIAC Hx Cardiac Disorders: No - PULMONARY Hx Pneumonia: Yes (X2-LAST TIME WAS ABOUT 20YRS. AGO) - NEUROLOGICAL Hx Multiple Sclerosis: Yes ("SECONDARY PROGRESSIVE") - HEENT Hx HEENT Problems: Yes Hx Cataracts: Yes (BILAT. -NO SURGERY YET) - RENAL Hx Chronic Kidney Disease: Yes - ENDOCRINE/METABOLIC Hx Endocrine Disorders: No - HEMATOLOGICAL/ONCOLOGICAL Hx AIDS: No Hx Human Immunodeficiency Virus (HIV): No - INTEGUMENTARY Hx Dermatological Problems: Yes Other/Comment: HX:MASS RIGHT INDEX FINGER - MUSCULOSKELETAL/RHEUMATOLOGICAL Hx Falls: Yes - GASTROINTESTINAL Hx Gastrointestinal Disorders: Yes ("CONSTIPATION") - GENITOURINARY/GYNECOLOGICAL Hx Genitourinary Disorders: No Other/Comment: neurogenis bladder. - PSYCHIATRIC Hx Substance Use: No - SURGICAL HISTORY Hx Surgeries: Yes Hx Tubal Ligation: Yes Other/Comment: EXPLORATORY LAPS. CYSTOSCOPIES - ANESTHESIA Hx Anesthesia: Yes Hx Anesthesia Reactions: No Hx Malignant Hyperthermia: No Meds Allergies/Adverse Reactions: Allergies Allergy/AdvReac Type Severity Reaction Status Date / Time morphine Allergy Severe SHORTNESS Verified 05/22/16 16:59 OF BREATH latex Allergy Intermediate RASH Verified 05/22/16 16:59 EGG AdvReac Intermediate VOMITING Verified 05/22/16 16:59 - Medications Medications: Current Medications Acetaminophen (Tylenol 325mg Tab) 325 mg PO Q4 PRN PRN Reason: Fever >100.4 F Albuterol/Ipratropium (Duoneb 3 Mg/0.5 Mg (3 Ml) Ud) 3 ml INH RQ6 PRN PRN Reason: Shortness of Breath Last Admin: 05/23/16 13:11 Dose: 3 ml Aspirin (Ecotrin) 81 mg PO HS [facility] Last Admin: 05/22/16 21:26 Dose: 81 mg Baclofen (Lioresal) 10 mg PO TID [facility] Last Admin: 05/23/16 13:16 Dose: 10 mg Cholecalciferol (Vitamin D) 2,000 iu PO DAILY [facility] Last Admin: 05/23/16 08:26 Dose: 2,000 iu Folic Acid (Folic Acid) 1 mg PO DAILY [facility] Last Admin: 05/23/16 08:27 Dose: 1 mg Guaifenesin (Robitussin) 100 mg PO Q6 PRN PRN Reason: Cough Home Med (Dalfampridine [Ampyra]) 10 mg PO Q12 [facility] Last Admin: 05/23/16 08:25 Dose: 10 mg Home Med (Dextromethorphan Hbr/Quinidine [Nuedexta 20-10 Mg Capsule]) 10 mg PO Q12 [facility] Last Admin: 05/23/16 08:26 Dose: 10 mg Home Med (Solifenacin Succinate [Vesicare]) 10 mg PO [facility] Last Admin: 05/22/16 21:46 Dose: 10 mg Home Med (Teriflunomide [Aubagio]) 14 mg PO [facility] Last Admin: 05/22/16 21:46 Dose: 14 mg Levofloxacin/Dextrose (Levaquin 750mg) 750 mg IVPB 0600 [facility] Last Admin: 05/23/16 05:15 Dose: 750 mg Modafinil (Provigil) 200 mg PO DAILY [facility] Last Admin: 05/23/16 08:29 Dose: 200 mg Nitrofurantoin (Nitrofurantoin) 50 mg PO [facility] Last Admin: 05/22/16 21:25 Dose: 50 mg Pentoxifylline (Pentoxil) 400 mg PO DAILY [facility] Last Admin: 05/23/16 08:27 Dose: 400 mg Sertraline HCl (Zoloft) 150 mg PO [facility] Last Admin: 05/22/16 21:27 Dose: 150 mg Physical Exam - Head Exam Head Exam: ATRAUMATIC, NORMAL INSPECTION, NORMOCEPHALIC - Eye Exam Eye Exam: EOMI, Normal appearance, PERRL Pupil Exam: NORMAL ACCOMODATION - ENT Exam ENT Exam: Mucous Membranes Moist, Normal Exam - Respiratory Exam Respiratory Exam: NORMAL BREATHING PATTERN - Cardiovascular Exam Cardiovascular Exam: REGULAR RHYTHM - GI/Abdominal Exam GI & Abdominal Exam: Normal Bowel Sounds - Rectal Exam Rectal Exam: NORMAL INSPECTION - Exam External exam: NORMAL EXTERNAL EXAM - Extremities Exam Additional comments: right leg weakness with brace problems with balance, coordination - Back Exam Back exam: NORMAL INSPECTION - Neurological Exam Neurological exam: Alert, CN II-XII Intact - Psychiatric Exam Psychiatric exam: Normal Affect, Normal Mood - Skin Skin Exam: Dry, Intact, Normal Color Results - Vital Signs Recent Vital Signs: Last Vital Signs Temp 98.2 F 05/23/16 08:40 Pulse 83 05/23/16 13:15 Resp 20 05/23/16 08:40 BP 133/60 05/23/16 08:40 Pulse Ox 95 05/23/16 11:48 Assessment & Plan (1) Multiple sclerosis exacerbation Assessment and Plan: status post exacerbation, physical, occupational, rec therapy rom, strenght, coordiation, balance and gait training overall plan dictated Goals for MOdified independent Status: Acute (2) Urinary tract infection Status: Acute
--- NOTE | 2016-05-23 13:42 | CP.PCM.PN ---
Subjective - Date & Time of Evaluation Date of Evaluation: 05/23/16 Time of Evaluation: 11:00 - Subjective Subjective: patient with complains of weakness, no other complaints at present Objective - Vital Signs/Intake and Output Vital Signs (last 24 hours): Temp Pulse Resp BP Pulse Ox 98.2 F 83 20 133/60 95 05/23/16 08:40 05/23/16 13:15 05/23/16 08:40 05/23/16 08:40 05/23/16 11:48 - Medications Medications: Current Medications Acetaminophen (Tylenol 325mg Tab) 325 mg PO Q4 PRN PRN Reason: Fever >100.4 F Albuterol/Ipratropium (Duoneb 3 Mg/0.5 Mg (3 Ml) Ud) 3 ml INH RQ6 PRN PRN Reason: Shortness of Breath Last Admin: 05/23/16 13:11 Dose: 3 ml Aspirin (Ecotrin) 81 mg PO [facility] Last Admin: 05/22/16 21:26 Dose: 81 mg Baclofen (Lioresal) 10 mg PO TID [facility] Last Admin: 05/23/16 13:16 Dose: 10 mg Cholecalciferol (Vitamin D) 2,000 iu PO DAILY [facility] Last Admin: 05/23/16 08:26 Dose: 2,000 iu Folic Acid (Folic Acid) 1 mg PO DAILY [facility] Last Admin: 05/23/16 08:27 Dose: 1 mg Guaifenesin (Robitussin) 100 mg PO Q6 PRN PRN Reason: Cough Home Med (Dalfampridine [Ampyra]) 10 mg PO Q12 [facility] Last Admin: 05/23/16 08:25 Dose: 10 mg Home Med (Dextromethorphan Hbr/Quinidine [Nuedexta 20-10 Mg Capsule]) 10 mg PO Q12 [facility] Last Admin: 05/23/16 08:26 Dose: 10 mg Home Med (Solifenacin Succinate [Vesicare]) 10 mg PO [facility] Last Admin: 05/22/16 21:46 Dose: 10 mg Home Med (Teriflunomide [Aubagio]) 14 mg PO [facility] Last Admin: 05/22/16 21:46 Dose: 14 mg Levofloxacin/Dextrose (Levaquin 750mg) 750 mg IVPB 0600 [facility] Last Admin: 05/23/16 05:15 Dose: 750 mg Modafinil (Provigil) 200 mg PO DAILY [facility] Last Admin: 05/23/16 08:29 Dose: 200 mg Nitrofurantoin (Nitrofurantoin) 50 mg PO [facility] Last Admin: 05/22/16 21:25 Dose: 50 mg Pentoxifylline (Pentoxil) 400 mg PO DAILY [facility] Last Admin: 05/23/16 08:27 Dose: 400 mg Sertraline HCl (Zoloft) 150 mg PO [facility] Last Admin: 05/22/16 21:27 Dose: 150 mg - Head Exam Head Exam: ATRAUMATIC, NORMAL INSPECTION, NORMOCEPHALIC - Eye Exam Eye Exam: EOMI, Normal appearance, PERRL Pupil Exam: NORMAL ACCOMODATION - ENT Exam ENT Exam: Mucous Membranes Moist, Normal Exam - Respiratory Exam Respiratory Exam: NORMAL BREATHING PATTERN - Cardiovascular Exam Cardiovascular Exam: REGULAR RHYTHM - GI/Abdominal Exam GI & Abdominal Exam: Normal Bowel Sounds - Rectal Exam Rectal Exam: NORMAL INSPECTION - Exam External exam: NORMAL EXTERNAL EXAM - Extremities Exam Extremities Exam: Normal Capillary Refill - Neurological Exam Neurological Exam: Alert, Awake, CN II-XII Intact Neuro motor strength exam: Left Upper Extremity: 3, Right Upper Extremity: 2/1, Left Lower Extremity: 3, Right Lower Extremity: 2/1 - Psychiatric Exam Psychiatric exam: Normal Affect, Normal Mood - Skin Skin Exam: Dry, Intact Assessment and Plan (1) Multiple sclerosis exacerbation Assessment & Plan: physical, occupational therapy rec therapy on antibioitics, consider inhaler and incentive spirometer Status: Acute (2) Urinary tract infection Status: Acute
--- NOTE | 2016-05-23 14:01 | PN ---
DATE: 05/23/2016 OVERALL PLAN OF CARE The patient was admitted on 05/22/2016 with a diagnosis of exacerbation of the MS, (ICD code of 03.1) with a history of osteoporosis, pneumonia, chronic renal disease. ESTIMATED LENGTH OF STAY: 2 to 2-1/2 weeks. REHAB IMPAIRMENT: Decreased coordination, strength, balance and gait. ETIOLOGICAL DIAGNOSIS: As previously stated of exacerbation of multiple sclerosis. REHAB PROGNOSIS: Fair. INTERVENTIONS: Physical therapy, occupational therapy, recreational therapy. THERAPY GOALS: The patient to be independent in bed mobility, independence of supervision for functi onal positional changes, independence of supervision for simple transfers, supervision and contact gu parth for complex transfers. FUNCTIONAL OUTCOME: Good. No acute barriers noted for discharge. DISCHARGE DISPOSITION: To be discharged home with supportive services. Edgar Raygoza MD cc: [id number] TT: 05/23/2016 14:00:30 Confirmation # [id number] Dictation # [id number] mn
[2016-05-23] MEDS: Nitrofurantoin 25 MG/5 ML SUSP PO SCH (21:29)
[2016-05-23] MEDS: TERIFLUNOMIDE 14 MG PO SCH (21:30)
[2016-05-24] MEDS: levoFLOXacin 750 mg in D5W 150 ML BAG IVPB SCH (05:19)
[2016-05-24] MEDS: QUINIDINE PO SCH ×2 (08:46→22:21)
[2016-05-24] MEDS: DEXTROMETHORPHAN HBR PO SCH ×2 (08:46→22:21)
[2016-05-24] MEDS: Albuterol-Ipratrop 3 mg / 0.5 (3 ml) UD INH PRN (10:40)
[2016-05-24] MEDS: Nitrofurantoin 25 MG/5 ML SUSP PO SCH ×2 (22:21→22:25)
[2016-05-24] MEDS: TERIFLUNOMIDE 14 MG PO SCH (22:23)
--- NOTE | 2016-05-24 23:13 | CP.PCM.HP ---
Past Patient History - Past Medical History & Family History Past Medical History?: Yes - Past Social History Smoking Status: Never Smoked - CARDIAC Hx Cardiac Disorders: No - PULMONARY Hx Pneumonia: Yes (X2-LAST TIME WAS ABOUT 20YRS. AGO) - NEUROLOGICAL Hx Multiple Sclerosis: Yes ("SECONDARY PROGRESSIVE") - HEENT Hx HEENT Problems: Yes Hx Cataracts: Yes (BILAT. -NO SURGERY YET) - RENAL Hx Chronic Kidney Disease: Yes - ENDOCRINE/METABOLIC Hx Endocrine Disorders: No - HEMATOLOGICAL/ONCOLOGICAL Hx AIDS: No Hx Human Immunodeficiency Virus (HIV): No - INTEGUMENTARY Hx Dermatological Problems: Yes Other/Comment: HX:MASS RIGHT INDEX FINGER - MUSCULOSKELETAL/RHEUMATOLOGICAL Hx Falls: Yes - GASTROINTESTINAL Hx Gastrointestinal Disorders: Yes ("CONSTIPATION") - GENITOURINARY/GYNECOLOGICAL Hx Genitourinary Disorders: No Other/Comment: neurogenis bladder. - PSYCHIATRIC Hx Substance Use: No - SURGICAL HISTORY Hx Surgeries: Yes Hx Tubal Ligation: Yes Other/Comment: EXPLORATORY LAPS. CYSTOSCOPIES - ANESTHESIA Hx Anesthesia: Yes Hx Anesthesia Reactions: No Hx Malignant Hyperthermia: No Meds Allergies/Adverse Reactions: Allergies Allergy/AdvReac Type Severity Reaction Status Date / Time morphine Allergy Severe SHORTNESS Verified 05/22/16 16:59 OF BREATH latex Allergy Intermediate RASH Verified 05/22/16 16:59 EGG AdvReac Intermediate VOMITING Verified 05/22/16 16:59 Results - Vital Signs Recent Vital Signs: Last Vital Signs Temp 98.0 F 05/24/16 20:24 Pulse 79 05/24/16 20:24 Resp 20 05/24/16 20:24 BP 121/69 05/24/16 20:24 Pulse Ox 95 05/24/16 20:24
[2016-05-25] MEDS: Albuterol-Ipratrop 3 mg / 0.5 (3 ml) UD INH PRN (04:19)
[2016-05-25] MEDS ORDERED: Pantoprazole 40 mg EC Tab PO SCH (06:00)
[2016-05-25] MEDS: DEXTROMETHORPHAN HBR PO SCH ×2 (09:31→21:11)
[2016-05-25] MEDS: QUINIDINE PO SCH ×2 (09:31→21:11)
[2016-05-25] MEDS: Nitrofurantoin 25 MG/5 ML SUSP PO SCH ×2 (22:00→22:06)
[2016-05-25] MEDS: TERIFLUNOMIDE 14 MG PO SCH (22:38)
--- NOTE | 2016-05-25 23:18 | CP.PCM.PN ---
Subjective - Date & Time of Evaluation Date of Evaluation: 05/25/16 Time of Evaluation: 18:30 Objective - Vital Signs/Intake and Output Vital Signs (last 24 hours): Temp Pulse Resp BP Pulse Ox 97.2 F L 91 H 20 122/70 95 05/25/16 16:00 05/25/16 16:00 05/25/16 16:00 05/25/16 16:00 05/25/16 16:00 - Medications Medications: Current Medications Acetaminophen (Tylenol 325mg Tab) 325 mg PO Q4 PRN PRN Reason: Fever >100.4 F Albuterol/Ipratropium (Duoneb 3 Mg/0.5 Mg (3 Ml) Ud) 3 ml INH RQ6 PRN PRN Reason: Shortness of Breath Last Admin: 05/25/16 04:19 Dose: 3 ml Aspirin (Ecotrin) 81 mg PO [facility] Last Admin: 05/25/16 22:00 Dose: 81 mg Baclofen (Lioresal) 10 mg PO TID [facility] Last Admin: 05/25/16 17:03 Dose: Not Given Cholecalciferol (Vitamin D) 2,000 iu PO DAILY [facility] Last Admin: 05/25/16 09:31 Dose: 2,000 iu Folic Acid (Folic Acid) 1 mg PO DAILY [facility] Last Admin: 05/25/16 09:31 Dose: 1 mg Guaifenesin (Robitussin) 100 mg PO Q6 PRN PRN Reason: Cough Home Med (Dalfampridine [Ampyra]) 10 mg PO Q12 [facility] Last Admin: 05/25/16 21:11 Dose: 10 mg Home Med (Solifenacin Succinate [Vesicare]) 10 mg PO [facility] Last Admin: 05/25/16 22:38 Dose: 10 mg Home Med (Teriflunomide [Aubagio]) 14 mg PO [facility] Last Admin: 05/25/16 22:38 Dose: 14 mg Home Med (Dextromethorphan Hbr/Quinidine [Nuedexta 20-10 Mg Capsule]) 10 mg PO Q12 [facility] Last Admin: 05/25/16 21:11 Dose: 10 mg Levofloxacin/Dextrose (Levaquin 750mg) 150 mls @ 150 mls/hr IVPB DAILY@0600 [facility] Last Admin: 05/25/16 05:44 Dose: 150 mls/hr Modafinil (Provigil) 200 mg PO DAILY [facility] Nitrofurantoin (Nitrofurantoin) 50 mg PO HS [facility] Last Admin: 05/25/16 22:06 Dose: Not Given Ondansetron HCl (Zofran Inj) 4 mg IVP Q6 PRN PRN Reason: Nausea/Vomiting Last Admin: 05/24/16 21:36 Dose: 4 mg Pantoprazole Sodium (Protonix Ec Tab) 40 mg PO 0600 [facility] Pentoxifylline (Pentoxil) 400 mg PO DAILY [facility] Sertraline HCl (Zoloft) 150 mg PO HS [facility] Last Admin: 05/25/16 23:05 Dose: 150 mg
[2016-05-26] MEDS: Albuterol-Ipratrop 3 mg / 0.5 (3 ml) UD INH PRN (05:30)
[2016-05-26] MEDS: Pantoprazole 40 mg EC Tab PO SCH (06:00)
[2016-05-26] MEDS: DEXTROMETHORPHAN HBR PO SCH ×2 (09:27→21:08)
[2016-05-26] MEDS: QUINIDINE PO SCH ×2 (09:27→21:08)
[2016-05-26] MEDS: TERIFLUNOMIDE 14 MG PO SCH (21:07)
[2016-05-26] MEDS: Nitrofurantoin 25 MG/5 ML SUSP PO SCH ×2 (21:08→21:16)
--- NOTE | 2016-05-26 21:24 | CP.PCM.PN ---
Subjective - Date & Time of Evaluation Date of Evaluation: 05/26/16 Time of Evaluation: 16:00 Objective - Vital Signs/Intake and Output Vital Signs (last 24 hours): Temp Pulse Resp BP Pulse Ox 97.3 F L 84 20 130/71 96 05/26/16 15:49 05/26/16 15:49 05/26/16 15:49 05/26/16 15:49 05/26/16 15:49 - Medications Medications: Current Medications Acetaminophen (Tylenol 325mg Tab) 325 mg PO Q4 PRN PRN Reason: Fever >100.4 F Albuterol/Ipratropium (Duoneb 3 Mg/0.5 Mg (3 Ml) Ud) 3 ml INH RQ6 PRN PRN Reason: Shortness of Breath Last Admin: 05/26/16 05:30 Dose: 3 ml Aspirin (Ecotrin) 81 mg PO [facility] Last Admin: 05/26/16 21:08 Dose: 81 mg Baclofen (Lioresal) 10 mg PO TID [facility] Last Admin: 05/26/16 16:45 Dose: Not Given Cholecalciferol (Vitamin D) 2,000 iu PO DAILY [facility] Last Admin: 05/26/16 09:26 Dose: 2,000 iu Folic Acid (Folic Acid) 1 mg PO DAILY [facility] Last Admin: 05/26/16 09:26 Dose: 1 mg Guaifenesin (Robitussin) 100 mg PO Q6 PRN PRN Reason: Cough Home Med (Dalfampridine [Ampyra]) 10 mg PO Q12 [facility] Last Admin: 05/26/16 21:08 Dose: 10 mg Home Med (Solifenacin Succinate [Vesicare]) 10 mg PO [facility] Last Admin: 05/26/16 21:08 Dose: 10 mg Home Med (Teriflunomide [Aubagio]) 14 mg PO [facility] Last Admin: 05/26/16 21:07 Dose: 14 mg Home Med (Dextromethorphan Hbr/Quinidine [Nuedexta 20-10 Mg Capsule]) 10 mg PO Q12 [facility] Last Admin: 05/26/16 21:08 Dose: 10 mg Levofloxacin/Dextrose (Levaquin 750mg) 150 mls @ 150 mls/hr IVPB DAILY@0600 [facility] Last Admin: 05/26/16 06:00 Dose: 150 mls/hr Modafinil (Provigil) 200 mg PO DAILY [facility] Last Admin: 05/26/16 09:22 Dose: 200 mg Nitrofurantoin (Nitrofurantoin) 50 mg PO HS [facility] Last Admin: 05/26/16 21:16 Dose: Not Given Ondansetron HCl (Zofran Inj) 4 mg IVP Q6 PRN PRN Reason: Nausea/Vomiting Last Admin: 05/24/16 21:36 Dose: 4 mg Pantoprazole Sodium (Protonix Ec Tab) 40 mg PO 0600 [facility] Last Admin: 05/26/16 06:00 Dose: 40 mg Pentoxifylline (Pentoxil) 400 mg PO DAILY [facility] Last Admin: 05/26/16 09:27 Dose: 400 mg Sertraline HCl (Zoloft) 150 mg PO HS [facility] Last Admin: 05/26/16 21:09 Dose: 150 mg
[2016-05-27] MEDS: Pantoprazole 40 mg EC Tab PO SCH (07:03)
[2016-05-27] MEDS: QUINIDINE PO SCH ×2 (09:12→20:36)
[2016-05-27] MEDS: DEXTROMETHORPHAN HBR PO SCH ×2 (09:12→20:36)
[2016-05-27] MEDS: TERIFLUNOMIDE 14 MG PO SCH (21:21)
--- NOTE | 2016-05-27 23:27 | CP.PCM.PN ---
Subjective - Date & Time of Evaluation Date of Evaluation: 05/27/16 Time of Evaluation: 12:50 Objective - Vital Signs/Intake and Output Vital Signs (last 24 hours): Temp Pulse Resp BP Pulse Ox 97.9 F 80 20 138/71 95 05/27/16 15:50 05/27/16 15:50 05/27/16 15:50 05/27/16 15:50 05/27/16 15:50 - Medications Medications: Current Medications Acetaminophen (Tylenol 325mg Tab) 325 mg PO Q4 PRN PRN Reason: Fever >100.4 F Acetaminophen (Tylenol 325mg Tab) 650 mg PO Q6 PRN PRN Reason: pain scale 1-10. Albuterol/Ipratropium (Duoneb 3 Mg/0.5 Mg (3 Ml) Ud) 3 ml INH RQ6 PRN PRN Reason: Shortness of Breath Last Admin: 05/26/16 05:30 Dose: 3 ml Aspirin (Ecotrin) 81 mg PO [facility] Last Admin: 05/27/16 21:21 Dose: 81 mg Baclofen (Lioresal) 10 mg PO TID [facility] Last Admin: 05/27/16 16:04 Dose: Not Given Cholecalciferol (Vitamin D) 2,000 iu PO DAILY [facility] Last Admin: 05/27/16 09:12 Dose: 2,000 iu Folic Acid (Folic Acid) 1 mg PO DAILY [facility] Last Admin: 05/27/16 09:11 Dose: 1 mg Guaifenesin (Robitussin) 100 mg PO Q6 PRN PRN Reason: Cough Home Med (Dalfampridine [Ampyra]) 10 mg PO Q12 [facility] Last Admin: 05/27/16 20:36 Dose: 10 mg Home Med (Solifenacin Succinate [Vesicare]) 10 mg PO [facility] Last Admin: 05/27/16 21:20 Dose: 10 mg Home Med (Teriflunomide [Aubagio]) 14 mg PO [facility] Last Admin: 05/27/16 21:21 Dose: 14 mg Home Med (Dextromethorphan Hbr/Quinidine [Nuedexta 20-10 Mg Capsule]) 10 mg PO Q12 [facility] Last Admin: 05/27/16 20:36 Dose: 10 mg Levofloxacin/Dextrose (Levaquin 750mg) 150 mls @ 150 mls/hr IVPB DAILY@0600 [facility] Last Admin: 05/27/16 07:02 Dose: 150 mls/hr Modafinil (Provigil) 200 mg PO DAILY [facility] Last Admin: 05/27/16 09:10 Dose: 200 mg Ondansetron HCl (Zofran Inj) 4 mg IVP Q6 PRN PRN Reason: Nausea/Vomiting Last Admin: 05/24/16 21:36 Dose: 4 mg Pantoprazole Sodium (Protonix Ec Tab) 40 mg PO 0600 [facility] Last Admin: 05/27/16 07:03 Dose: 40 mg Pentoxifylline (Pentoxil) 400 mg PO DAILY [facility] Last Admin: 05/27/16 09:11 Dose: 400 mg Sertraline HCl (Zoloft) 150 mg PO HS [facility] Last Admin: 05/27/16 21:21 Dose: 150 mg
[2016-05-28] MEDS: Pantoprazole 40 mg EC Tab PO SCH (06:30)
[2016-05-28] MEDS: DEXTROMETHORPHAN HBR PO SCH ×2 (08:37→21:23)
[2016-05-28] MEDS: QUINIDINE PO SCH ×2 (08:37→21:23)
[2016-05-28] MEDS: Albuterol-Ipratrop 3 mg / 0.5 (3 ml) UD INH PRN (18:56)
[2016-05-28] MEDS: TERIFLUNOMIDE 14 MG PO SCH (22:40)
--- NOTE | 2016-05-28 23:48 | CP.PCM.PN ---
Objective - Vital Signs/Intake and Output Vital Signs (last 24 hours): Temp Pulse Resp BP Pulse Ox 98.2 F 85 20 129/66 96 05/28/16 22:00 05/28/16 22:00 05/28/16 22:00 05/28/16 22:00 05/28/16 22:00 - Medications Medications: Current Medications Acetaminophen (Tylenol 325mg Tab) 325 mg PO Q4 PRN PRN Reason: Fever >100.4 F Acetaminophen (Tylenol 325mg Tab) 650 mg PO Q6 PRN PRN Reason: pain scale 1-10. Albuterol/Ipratropium (Duoneb 3 Mg/0.5 Mg (3 Ml) Ud) 3 ml INH RQ6 PRN PRN Reason: Shortness of Breath Last Admin: 05/28/16 18:56 Dose: 3 ml Aspirin (Ecotrin) 81 mg PO [facility] Last Admin: 05/28/16 22:40 Dose: 81 mg Baclofen (Lioresal) 10 mg PO TID [facility] Last Admin: 05/28/16 17:07 Dose: 10 mg Cholecalciferol (Vitamin D) 2,000 iu PO DAILY [facility] Last Admin: 05/28/16 08:39 Dose: 2,000 iu Folic Acid (Folic Acid) 1 mg PO DAILY [facility] Last Admin: 05/28/16 08:39 Dose: 1 mg Guaifenesin (Robitussin) 100 mg PO Q6 PRN PRN Reason: Cough Home Med (Dalfampridine [Ampyra]) 10 mg PO Q12 [facility] Last Admin: 05/28/16 21:23 Dose: 10 mg Home Med (Solifenacin Succinate [Vesicare]) 10 mg PO [facility] Last Admin: 05/28/16 22:40 Dose: 10 mg Home Med (Teriflunomide [Aubagio]) 14 mg PO [facility] Last Admin: 05/28/16 22:40 Dose: 14 mg Home Med (Dextromethorphan Hbr/Quinidine [Nuedexta 20-10 Mg Capsule]) 10 mg PO Q12 [facility] Last Admin: 05/28/16 21:23 Dose: 10 mg Levofloxacin/Dextrose (Levaquin 750mg) 150 mls @ 150 mls/hr IVPB DAILY@0600 [facility] Last Admin: 04/03/17 06:28 Dose: 150 mls/hr Modafinil (Provigil) 200 mg PO DAILY [facility] Last Admin: 05/28/16 08:36 Dose: 200 mg Ondansetron HCl (Zofran Inj) 4 mg IVP Q6 PRN PRN Reason: Nausea/Vomiting Last Admin: 05/24/16 21:36 Dose: 4 mg Pantoprazole Sodium (Protonix Ec Tab) 40 mg PO 0600 [facility] Last Admin: 05/28/16 06:30 Dose: 40 mg Pentoxifylline (Pentoxil) 400 mg PO DAILY [facility] Last Admin: 05/28/16 08:39 Dose: 400 mg Sertraline HCl (Zoloft) 150 mg PO HS [facility] Last Admin: 05/28/16 23:02 Dose: 150 mg
[2016-05-29] MEDS: Pantoprazole 40 mg EC Tab PO SCH (06:02)
[2016-05-29] MEDS: QUINIDINE PO SCH ×2 (08:52→21:13)
[2016-05-29] MEDS: DEXTROMETHORPHAN HBR PO SCH ×2 (08:52→21:13)
--- NOTE | 2016-05-29 14:37 | PN ---
DATE: 05/26/2016 The patient is feeling fine, no acute complaints at present. Still with right-sided weakness. PHYSICAL EXAMINATION: VITAL SIGNS: Stable. NECK: Supple. CHEST: Symmetrical. HEART: Sounds S1, S2. ABDOMEN: Benign. EXTREMITIES: No clubbing, cyanosis, or edema. IMPRESSION: Multiple sclerosis, history of fracture, osteoarthritis, pneumonia, chronic kidney disea se. PLAN: Physical and occupational therapy for range of motion, strengthening, transfers, ambulation an d gait training. The patient with a brace on the foot. Continue with present treatment plan. Edgar Raygoza MD cc: [phone] TT: 05/29/2016 14:36:34 Confirmation # [id number] Dictation # [id number] john
--- NOTE | 2016-05-29 14:48 | CP.PCM.PN ---
Subjective - Date & Time of Evaluation Date of Evaluation: 05/26/16 Time of Evaluation: 13:00 - Subjective Subjective: no acute complains of weakness or pain Objective - Vital Signs/Intake and Output Vital Signs (last 24 hours): Temp Pulse Resp BP Pulse Ox 98.1 F 89 22 137/64 92 L 05/29/16 08:06 05/29/16 10:19 05/29/16 08:06 05/29/16 08:06 05/29/16 10:19 - Medications Medications: Current Medications Acetaminophen (Tylenol 325mg Tab) 325 mg PO Q4 PRN PRN Reason: Fever >100.4 F Acetaminophen (Tylenol 325mg Tab) 650 mg PO Q6 PRN PRN Reason: pain scale 1-10. Albuterol/Ipratropium (Duoneb 3 Mg/0.5 Mg (3 Ml) Ud) 3 ml INH RQ6 PRN PRN Reason: Shortness of Breath Last Admin: 05/28/16 18:56 Dose: 3 ml Aspirin (Ecotrin) 81 mg PO [facility] Last Admin: 05/28/16 22:40 Dose: 81 mg Baclofen (Lioresal) 10 mg PO TID [facility] Last Admin: 05/29/16 13:17 Dose: Not Given Cholecalciferol (Vitamin D) 2,000 iu PO DAILY [facility] Last Admin: 05/29/16 08:54 Dose: 2,000 iu Folic Acid (Folic Acid) 1 mg PO DAILY [facility] Last Admin: 05/29/16 08:54 Dose: 1 mg Guaifenesin (Robitussin) 100 mg PO Q6 PRN PRN Reason: Cough Home Med (Dalfampridine [Ampyra]) 10 mg PO Q12 [facility] Last Admin: 05/29/16 08:53 Dose: 10 mg Home Med (Solifenacin Succinate [Vesicare]) 10 mg PO [facility] Last Admin: 05/28/16 22:40 Dose: 10 mg Home Med (Teriflunomide [Aubagio]) 14 mg PO [facility] Last Admin: 05/28/16 22:40 Dose: 14 mg Home Med (Dextromethorphan Hbr/Quinidine [Nuedexta 20-10 Mg Capsule]) 10 mg PO Q12 [facility] Last Admin: 05/29/16 08:52 Dose: 10 mg Modafinil (Provigil) 200 mg PO DAILY [facility] Last Admin: 05/29/16 08:52 Dose: 200 mg Ondansetron HCl (Zofran Inj) 4 mg IVP Q6 PRN PRN Reason: Nausea/Vomiting Last Admin: 05/24/16 21:36 Dose: 4 mg Pantoprazole Sodium (Protonix Ec Tab) 40 mg PO 0600 [facility] Last Admin: 05/29/16 06:02 Dose: 40 mg Pentoxifylline (Pentoxil) 400 mg PO DAILY [facility] Last Admin: 05/29/16 08:54 Dose: 400 mg Sertraline HCl (Zoloft) 150 mg PO HS [facility] Last Admin: 05/28/16 23:02 Dose: 150 mg - Head Exam Head Exam: ATRAUMATIC, NORMAL INSPECTION, NORMOCEPHALIC - Eye Exam Eye Exam: EOMI, Normal appearance, PERRL Pupil Exam: NORMAL ACCOMODATION - ENT Exam ENT Exam: Mucous Membranes Moist, Normal Exam - Respiratory Exam Respiratory Exam: NORMAL BREATHING PATTERN - Cardiovascular Exam Cardiovascular Exam: REGULAR RHYTHM - GI/Abdominal Exam GI & Abdominal Exam: Normal Bowel Sounds - Exam Exam: NORMAL INSPECTION External exam: NORMAL EXTERNAL EXAM - Extremities Exam Extremities Exam: Normal Capillary Refill, Normal Inspection - Back Exam Back Exam: NORMAL INSPECTION - Neurological Exam Neurological Exam: Alert, Awake Neuro motor strength exam: Left Upper Extremity: 4, Right Upper Extremity: 3, Left Lower Extremity: 4, Right Lower Extremity: 3 - Psychiatric Exam Psychiatric exam: Normal Affect, Normal Mood - Skin Skin Exam: Dry, Intact Assessment and Plan (1) Multiple sclerosis exacerbation Assessment & Plan: physical, occupational, rec therapy Status: Acute (2) Urinary tract infection Status: Acute
--- NOTE | 2016-05-29 14:52 | CP.PCM.PN ---
Subjective - Date & Time of Evaluation Date of Evaluation: 05/29/16 Time of Evaluation: 12:00 - Subjective Subjective: no acute complaints of neck or back pain Objective - Vital Signs/Intake and Output Vital Signs (last 24 hours): Temp Pulse Resp BP Pulse Ox 98.1 F 89 22 137/64 92 L 05/29/16 08:06 05/29/16 10:19 05/29/16 08:06 05/29/16 08:06 05/29/16 10:19 - Medications Medications: Current Medications Acetaminophen (Tylenol 325mg Tab) 325 mg PO Q4 PRN PRN Reason: Fever >100.4 F Acetaminophen (Tylenol 325mg Tab) 650 mg PO Q6 PRN PRN Reason: pain scale 1-10. Albuterol/Ipratropium (Duoneb 3 Mg/0.5 Mg (3 Ml) Ud) 3 ml INH RQ6 PRN PRN Reason: Shortness of Breath Last Admin: 05/28/16 18:56 Dose: 3 ml Aspirin (Ecotrin) 81 mg PO [facility] Last Admin: 05/28/16 22:40 Dose: 81 mg Baclofen (Lioresal) 10 mg PO TID [facility] Last Admin: 05/29/16 13:17 Dose: Not Given Cholecalciferol (Vitamin D) 2,000 iu PO DAILY [facility] Last Admin: 05/29/16 08:54 Dose: 2,000 iu Folic Acid (Folic Acid) 1 mg PO DAILY [facility] Last Admin: 05/29/16 08:54 Dose: 1 mg Guaifenesin (Robitussin) 100 mg PO Q6 PRN PRN Reason: Cough Home Med (Dalfampridine [Ampyra]) 10 mg PO Q12 [facility] Last Admin: 05/29/16 08:53 Dose: 10 mg Home Med (Solifenacin Succinate [Vesicare]) 10 mg PO [facility] Last Admin: 05/28/16 22:40 Dose: 10 mg Home Med (Teriflunomide [Aubagio]) 14 mg PO [facility] Last Admin: 05/28/16 22:40 Dose: 14 mg Home Med (Dextromethorphan Hbr/Quinidine [Nuedexta 20-10 Mg Capsule]) 10 mg PO Q12 [facility] Last Admin: 05/29/16 08:52 Dose: 10 mg Modafinil (Provigil) 200 mg PO DAILY [facility] Last Admin: 05/29/16 08:52 Dose: 200 mg Ondansetron HCl (Zofran Inj) 4 mg IVP Q6 PRN PRN Reason: Nausea/Vomiting Last Admin: 05/24/16 21:36 Dose: 4 mg Pantoprazole Sodium (Protonix Ec Tab) 40 mg PO 0600 [facility] Last Admin: 05/29/16 06:02 Dose: 40 mg Pentoxifylline (Pentoxil) 400 mg PO DAILY [facility] Last Admin: 05/29/16 08:54 Dose: 400 mg Sertraline HCl (Zoloft) 150 mg PO HS [facility] Last Admin: 05/28/16 23:02 Dose: 150 mg - Head Exam Head Exam: ATRAUMATIC, NORMAL INSPECTION, NORMOCEPHALIC - Eye Exam Eye Exam: EOMI, Normal appearance, PERRL Pupil Exam: NORMAL ACCOMODATION, PERRL - ENT Exam ENT Exam: Mucous Membranes Moist, Normal Exam - Respiratory Exam Respiratory Exam: Clear to Ausculation Bilateral, NORMAL BREATHING PATTERN - Cardiovascular Exam Cardiovascular Exam: REGULAR RHYTHM - GI/Abdominal Exam GI & Abdominal Exam: Normal Bowel Sounds - Rectal Exam Rectal Exam: NORMAL INSPECTION - Exam Exam: NORMAL INSPECTION External exam: NORMAL EXTERNAL EXAM - Extremities Exam Extremities Exam: Normal Capillary Refill - Back Exam Back Exam: NORMAL INSPECTION - Neurological Exam Neurological Exam: Alert, Awake Neuro motor strength exam: Left Upper Extremity: 4, Right Upper Extremity: 3, Left Lower Extremity: 4, Right Lower Extremity: 3 - Psychiatric Exam Psychiatric exam: Normal Affect, Normal Mood - Skin Skin Exam: Dry, Intact Assessment and Plan (1) Multiple sclerosis exacerbation Assessment & Plan: plan for team conference, plan for physical, occupational and rec therapy [facility] skin and vitals Status: Acute (2) Urinary tract infection Status: Acute
[2016-05-29] MEDS: TERIFLUNOMIDE 14 MG PO SCH (21:12)
--- NOTE | 2016-05-29 23:27 | CP.PCM.PN ---
Objective - Vital Signs/Intake and Output Vital Signs (last 24 hours): Temp Pulse Resp BP Pulse Ox 97.3 F L 94 H 20 130/70 96 05/29/16 15:38 05/29/16 15:38 05/29/16 15:38 05/29/16 15:38 05/29/16 15:38 - Medications Medications: Current Medications Acetaminophen (Tylenol 325mg Tab) 325 mg PO Q4 PRN PRN Reason: Fever >100.4 F Acetaminophen (Tylenol 325mg Tab) 650 mg PO Q6 PRN PRN Reason: pain scale 1-10. Albuterol/Ipratropium (Duoneb 3 Mg/0.5 Mg (3 Ml) Ud) 3 ml INH RQ6 PRN PRN Reason: Shortness of Breath Last Admin: 05/28/16 18:56 Dose: 3 ml Aspirin (Ecotrin) 81 mg PO [facility] Last Admin: 05/29/16 21:10 Dose: 81 mg Baclofen (Lioresal) 10 mg PO TID [facility] Last Admin: 05/29/16 16:59 Dose: 10 mg Cholecalciferol (Vitamin D) 2,000 iu PO DAILY [facility] Last Admin: 05/29/16 08:54 Dose: 2,000 iu Folic Acid (Folic Acid) 1 mg PO DAILY [facility] Last Admin: 05/29/16 08:54 Dose: 1 mg Guaifenesin (Robitussin) 100 mg PO Q6 PRN PRN Reason: Cough Home Med (Dalfampridine [Ampyra]) 10 mg PO Q12 [facility] Last Admin: 05/29/16 21:13 Dose: 10 mg Home Med (Solifenacin Succinate [Vesicare]) 10 mg PO [facility] Last Admin: 05/29/16 21:12 Dose: 10 mg Home Med (Teriflunomide [Aubagio]) 14 mg PO [facility] Last Admin: 05/29/16 21:12 Dose: 14 mg Home Med (Dextromethorphan Hbr/Quinidine [Nuedexta 20-10 Mg Capsule]) 10 mg PO Q12 [facility] Last Admin: 05/29/16 21:13 Dose: 10 mg Levofloxacin/Dextrose (Levaquin 750mg) 150 mls @ 150 mls/hr IVPB DAILY@0600 [facility] Stop: 05/30/16 06:59 Modafinil (Provigil) 200 mg PO DAILY [facility] Last Admin: 05/29/16 08:52 Dose: 200 mg Ondansetron HCl (Zofran Inj) 4 mg IVP Q6 PRN PRN Reason: Nausea/Vomiting Last Admin: 05/24/16 21:36 Dose: 4 mg Pantoprazole Sodium (Protonix Ec Tab) 40 mg PO 0600 [facility] Last Admin: 05/29/16 06:02 Dose: 40 mg Pentoxifylline (Pentoxil) 400 mg PO DAILY [facility] Last Admin: 05/29/16 08:54 Dose: 400 mg Sertraline HCl (Zoloft) 150 mg PO [facility] Last Admin: 05/29/16 21:10 Dose: 150 mg
[2016-05-30] MEDS: Pantoprazole 40 mg EC Tab PO SCH (06:40)
[2016-05-30 08:15] LABS: BASO % 0.2 % (0.0-2.0); EOS # 0.1 K/uL (0.0-0.7); EOS % 2.2 % (0.0-4.0); HEMATOCRIT 27.8 % (34.0-47.0); LYMPH # 1.7 K/uL (1.0-4.3); LYMPH % 25.4 % (20.0-40.0); MEAN CELL VOLUME 64.2 fl (81.0-99.0); MEAN CORPUSCULAR HGB CONC 31.2 g/dL (33.0-37.0); MEAN PLATELET VOLUME 10.8 fl (7.2-11.7); MONO # 0.7 K/uL (0.0-0.8); MONO % 10.2 % (0.0-10.0); NEUT # 4.2 K/uL (1.8-7.0); NRBC % 0.1 % (0.0-0.0); RED CELL DISTRIBUTION WIDTH 16.4 % (11.5-14.5)
[2016-05-30 08:17] LABS: BLOOD UREA NITROGEN 21 mg/dl (7-17); CALCIUM 8.2 mg/dL (8.4-10.2); CARBON DIOXIDE 25 mmol/L (22-30); CHLORIDE 108 mmol/L (98-107); GFR AFRICAN-AMERICAN > 60; GLUCOSE,RANDOM 83 mg/dL (65-105); POTASSIUM 3.8 MMOL/L (3.6-5.0); SODIUM 142 mmol/l (132-148)
[2016-05-30] MEDS: DEXTROMETHORPHAN HBR PO SCH ×2 (08:32→21:16)
[2016-05-30] MEDS: QUINIDINE PO SCH ×2 (08:32→21:16)
[2016-05-30 08:42] LABS: WHITE BLOOD COUNT 6.8 K/uL (4.8-10.8)
--- NOTE | 2016-05-30 12:12 | PSY.TMCNF ---
Nursing - Vital Signs Vital Signs (Last 8 hours): Vital Signs 05/30/16 05/30/16 08:23 10:25 Temperature 97.9 F Pulse Rate 73 89 Respiratory 20 Rate Blood Pressure 130/67 O2 Sat by Pulse 73 L 96 Oximetry Pain: 0 - Precautions: Precautions: Fall Prevention - Medications/Other Issues Comment: Pt at low nutritional risk. no goals. Follow-up due on 06/06/2016 - Consults Comment: Dr. Nieto-Doreen - Toileting Toileting: Dependent - Bladder Management Bladder Pattern: Incontinent Voiding Method: Toilet, Diaper - Bowel Management Bowel Pattern: Normal Bowel Management: Dependent Frequency of Accidents: 1 - Transfers Transfers: Maximal Assistance - ADL's ADL's: Maximal Assistance - Patient/Family Teaching Comments: Care with MS and safety precautions - Goals/Time Frame Comments: Pt was seen awake and alert laying in bed. Pt agreeable to visit. Pt was able to identify her leisure interests such as playing scrabble, watching television, playing cards, and dominoes. Pt reported that [facility] which has senior programs and meals for pt throughout day. Pt utilizes scooter for mobility within the community and used to visit [facility]. 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 Pt's mood was stable-positive throughout visit. Physical Therapy - Bed Mobility Bed Mobility: Contact Guard - Transfers Sit to Stand: Contact Guard, Minimal Assistance - Ambulation Level of Assistance: Verbal Cues, Contact Guard Distance (ft.): 100 Assistive Devices: Rolling Walker - Stair Negotiation Stairs: Level of Assistance: Contact Guard Number of Stairs: 1 Stairs: Assistive Devices: Left Handrail, Right Handrail - Standing Balance Static Stand: Supervision Dynamic Stand: Minimal Assistance - Pain Management Techniques: Massage, Relaxation Techniques Comment: Pt has occasional pain in B shoulders with standing and ambulation from increased Weightbearing through BUEs on RW - Insight/Carryover Insight/Carryover: Good - Patient/Family Education Comment: Pt education provided for increased safety awareness and proper techniques during functional mobility training - Assessment/Plan Assessment: Pt is highly motivated during therapy sessions and has progressed to [facility] level for bed mobility, transfers, and ambulating with RW for up to 100 ft. Pt will continue to benefit from skilled PT intervention to address deficits of RLE strength, standing balance, and endurance to reduce fall risk and maximize functional independence. - Goals Timeframe: 2 weeks Goals: Sit < > supine mod I. Sit < > stand and bed < > wheelchair transfers mod I using RW. Ambulate 150 ft mod I with RW - Provider Therapist: Alicia Ca PT, DPT License Number: [id number] Occupational Therapy - Arousal/Attention/Orientation Patient Orientation: Person, Place, Time, Appropriate to Age, Appropriate to Situation - ADL/IADL Self Feeding: Supervision, Set-up Help Grooming: Verbal Cues, Set-up Help, Minimal Assistance Bathing-Upper Extremity: Verbal Cues, Set-up Help, Moderate Assistance Bathing-Lower Extremity: Verbal Cues, Set-up Help, Maximum Assistance Dressing-Upper Extremity: Verbal Cues, Set-up Help, Minimal Assistance Dressing-Lower Extremity: Verbal Cues, Set-up Help, Maximum Assistance - Sitting Balance Static Sitting: Supervision Dynamic Sitting: Requires supervision - Transfers Wheelchair to Bed Transfers: Verbal Cues, Set-up Help, Contact Guard Toilet Transfers: Verbal Cues, Set-up Help, Contact Guard Tub Transfers: Minimal Assistance - Wheelchair Management Level of Assistance: Minimal Assistance - Upper Extremity Status Right Upper Extremity Comment: ROM = WFL Left Upper Extremity Comment: ROM = WFL - Pain Alleviating Techniques: Massage, Relaxation Techniques Comment: Pt has occasional pain in B shoulders with standing and ambulation from increased Weightbearing through BUEs on RW - Insight/Carryover Insight/Carryover: Good - Patient/Family Education Comment: Pt education provided for increased safety awareness and proper techniques during functional mobility training - Assessment/Plan Assessment: Pt is highly motivated during therapy sessions and has progressed to [facility] level for bed mobility, transfers, and ambulating with RW for up to 100 ft. Pt will continue to benefit from skilled PT intervention to address deficits of RLE strength, standing balance, and endurance to reduce fall risk and maximize functional independence. - Goals Timeframe: 2 weeks Goals: Sit < > supine mod I. Sit < > stand and bed < > wheelchair transfers mod I using RW. Ambulate 150 ft mod I with RW - Provider Therapist: Mikayla Guzman MS, OTR/L Speech Therapy - Plan Assessment: Pt is highly motivated during therapy sessions and has progressed to [facility] level for bed mobility, transfers, and ambulating with RW for up to 100 ft. Pt will continue to benefit from skilled PT intervention to address deficits of RLE strength, standing balance, and endurance to reduce fall risk and maximize functional independence. Recreational Therapy - Participation Participation: Participates in Individual and/or Group Sessions - Attendance Attendance: 3-5 times per week - Activities Leisure Activities: Cards and Games - Socialization Level of Socialization: Initiates/interacts freely with care givers and peer - Diversional Time Diversional Time: likes dominoes, bingo, cards, etc. - Assessment Assessment/Plan: Pt is highly motivated during therapy sessions and has progressed to [facility] level for bed mobility, transfers, and ambulating with RW for up to 100 ft. Pt will continue to benefit from skilled PT intervention to address deficits of RLE strength, standing balance, and endurance to reduce fall risk and maximize functional independence. - Provider Therapist: Zuleika Sandra, BUFFING MACHINE OPERATOR [employer] #[id number] Nutrition - Current Diet Current Diet/ Supplement/ Feedings: Regular diet - Appetite Percent Meal Consumed: 75-100% - Comments Comments: Care with MS and safety precautions - Assessment/Goals/Time Frame Assessment/Goals/Time Frame: Pt at low nutritional risk. no goals. Follow-up due on 06/06/2016 - Provider Provider: Marissa Barrios RD Case Management - Psychosocial Assessment Support Systems: Patient lives alone, however, sibling and friends are supportive and involved in care. Corrine Carvajal (sister)- [phone] Psychological Interventions/Needs: Patient is alert and oriented x3 and able to verbalize needs. Patient is cooperative and motivated for therapy Discharge Concerns: Patient with limited support during the day Patient/Family Meeting: CM met with patient and rehab team Intervention/Goal/Outcome:: 1. Goal: intermittent supervision overall? 2. Plan: home with skilled vs DREW dependant on progress. 3. DME needs. 4. f/u appts. 5. continued emotional support. 6. caregiver training? 7.patient to be re-teamed next week for most appropriate discharge date and plan - Discharge Plan Discharge Plan: Home with services, Subacute care - Provider Provider: MARYAM Meier, PLANT OPERATIONS MANAGER License Number: [id number] Rehabilitation Plan - Treatment Plan Treatment Plan: Physical Therapy, Occupational Therapy, Dietary, Patient/Family Education - Recommendation Recommendation: Physical Therapy, Occupational Therapy, Dietary, Patient/Family Education - Discharge Plan Discharge to: Home (14)
--- NOTE | 2016-05-30 12:45 | CP.PCM.PN ---
Subjective - Date & Time of Evaluation Date of Evaluation: 05/30/16 Time of Evaluation: 12:00 - Subjective Subjective: patient with acute complaints of weakness Objective - Vital Signs/Intake and Output Vital Signs (last 24 hours): Temp Pulse Resp BP Pulse Ox 97.9 F 89 20 130/67 96 05/30/16 08:23 05/30/16 10:25 05/30/16 08:23 05/30/16 08:23 05/30/16 10:25 - Medications Medications: Current Medications Acetaminophen (Tylenol 325mg Tab) 325 mg PO Q4 PRN PRN Reason: Fever >100.4 F Acetaminophen (Tylenol 325mg Tab) 650 mg PO Q6 PRN PRN Reason: pain scale 1-10. Albuterol/Ipratropium (Duoneb 3 Mg/0.5 Mg (3 Ml) Ud) 3 ml INH RQ6 PRN PRN Reason: Shortness of Breath Last Admin: 05/28/16 18:56 Dose: 3 ml Aspirin (Ecotrin) 81 mg PO [facility] Last Admin: 05/29/16 21:10 Dose: 81 mg Baclofen (Lioresal) 10 mg PO TID [facility] Last Admin: 05/30/16 12:04 Dose: Not Given Cholecalciferol (Vitamin D) 2,000 iu PO DAILY [facility] Last Admin: 05/30/16 08:33 Dose: 2,000 iu Folic Acid (Folic Acid) 1 mg PO DAILY [facility] Last Admin: 05/30/16 08:32 Dose: 1 mg Guaifenesin (Robitussin) 100 mg PO Q6 PRN PRN Reason: Cough Home Med (Dalfampridine [Ampyra]) 10 mg PO Q12 [facility] Last Admin: 05/30/16 08:32 Dose: 10 mg Home Med (Solifenacin Succinate [Vesicare]) 10 mg PO [facility] Last Admin: 05/29/16 21:12 Dose: 10 mg Home Med (Teriflunomide [Aubagio]) 14 mg PO [facility] Last Admin: 05/29/16 21:12 Dose: 14 mg Home Med (Dextromethorphan Hbr/Quinidine [Nuedexta 20-10 Mg Capsule]) 10 mg PO Q12 [facility] Last Admin: 05/30/16 08:32 Dose: 10 mg Modafinil (Provigil) 200 mg PO DAILY [facility] Last Admin: 05/30/16 08:31 Dose: 200 mg Ondansetron HCl (Zofran Inj) 4 mg IVP Q6 PRN PRN Reason: Nausea/Vomiting Last Admin: 05/24/16 21:36 Dose: 4 mg Pantoprazole Sodium (Protonix Ec Tab) 40 mg PO 0600 [facility] Last Admin: 05/30/16 06:40 Dose: 40 mg Pentoxifylline (Pentoxil) 400 mg PO DAILY [facility] Last Admin: 05/30/16 08:33 Dose: 400 mg Sertraline HCl (Zoloft) 150 mg PO HS [facility] Last Admin: 05/29/16 21:10 Dose: 150 mg - Labs Labs: 05/30/16 05:20 05/30/16 05:20 - Head Exam Head Exam: ATRAUMATIC, NORMAL INSPECTION, NORMOCEPHALIC - Eye Exam Eye Exam: EOMI, Normal appearance, PERRL Pupil Exam: NORMAL ACCOMODATION - ENT Exam ENT Exam: Mucous Membranes Moist, Normal Exam - Respiratory Exam Respiratory Exam: NORMAL BREATHING PATTERN - Cardiovascular Exam Cardiovascular Exam: REGULAR RHYTHM - GI/Abdominal Exam GI & Abdominal Exam: Normal Bowel Sounds - Rectal Exam Rectal Exam: NORMAL INSPECTION - Exam External exam: NORMAL EXTERNAL EXAM - Extremities Exam Extremities Exam: Normal Capillary Refill - Neurological Exam Neurological Exam: Alert, Awake Neuro motor strength exam: Left Upper Extremity: 4, Right Upper Extremity: 3, Left Lower Extremity: 4, Right Lower Extremity: 3 - Psychiatric Exam Psychiatric exam: Normal Affect, Normal Mood - Skin Skin Exam: Normal Color Assessment and Plan (1) Multiple sclerosis exacerbation Assessment & Plan: physical and occupational rom , strengthening transfer and gait training status post team conference Dc for 14 patient need wheelchair for long distance to prevent fatigue and falls, patient still needs assistance for Adls and transfers and ambulation patient also needs a walker for short distance Status: Acute (2) Urinary tract infection Status: Acute
[2016-05-30] MEDS: Albuterol-Ipratrop 3 mg / 0.5 (3 ml) UD INH PRN (22:00)
[2016-05-30] MEDS: TERIFLUNOMIDE 14 MG PO SCH (22:43)
--- NOTE | 2016-05-31 00:35 | CP.PCM.PN ---
Subjective - Date & Time of Evaluation Date of Evaluation: 05/30/16 Time of Evaluation: 19:00 Objective - Vital Signs/Intake and Output Vital Signs (last 24 hours): Temp Pulse Resp BP Pulse Ox 97.0 F L 89 20 126/68 97 05/30/16 20:08 05/30/16 20:08 05/30/16 20:08 05/30/16 20:08 05/30/16 20:08 - Medications Medications: Current Medications Acetaminophen (Tylenol 325mg Tab) 325 mg PO Q4 PRN PRN Reason: Fever >100.4 F Acetaminophen (Tylenol 325mg Tab) 650 mg PO Q6 PRN PRN Reason: pain scale 1-10. Albuterol/Ipratropium (Duoneb 3 Mg/0.5 Mg (3 Ml) Ud) 3 ml INH RQ6 PRN PRN Reason: Shortness of Breath Last Admin: 05/30/16 22:00 Dose: 3 ml Aspirin (Ecotrin) [address] [facility] Last Admin: 05/30/16 21:16 Dose: 81 mg Baclofen (Lioresal) 10 mg PO TID [facility] Last Admin: 05/30/16 16:39 Dose: 10 mg Cholecalciferol (Vitamin D) 2,000 iu PO DAILY [facility] Last Admin: 05/30/16 08:33 Dose: 2,000 iu Folic Acid (Folic Acid) 1 mg PO DAILY [facility] Last Admin: 05/30/16 08:32 Dose: 1 mg Guaifenesin (Robitussin) 100 mg PO Q6 PRN PRN Reason: Cough Home Med (Dalfampridine [Ampyra]) 10 mg PO Q12 [facility] Last Admin: 05/30/16 21:16 Dose: 10 mg Home Med (Solifenacin Succinate [Vesicare]) [address] [facility] Last Admin: 05/30/16 22:43 Dose: 10 mg Home Med (Teriflunomide [Aubagio]) 14 mg [address] [facility] Last Admin: 05/30/16 22:43 Dose: 14 mg Home Med (Dextromethorphan Hbr/Quinidine [Nuedexta 20-10 Mg Capsule]) 10 mg PO Q12 [facility] Last Admin: 05/30/16 21:16 Dose: 10 mg Modafinil (Provigil) 200 mg PO DAILY [facility] Last Admin: 05/30/16 08:31 Dose: 200 mg Ondansetron HCl (Zofran Inj) 4 mg IVP Q6 PRN PRN Reason: Nausea/Vomiting Last Admin: 05/24/16 21:36 Dose: 4 mg Pantoprazole Sodium (Protonix Ec Tab) 40 mg PO 0600 [facility] Last Admin: 05/30/16 06:40 Dose: 40 mg Pentoxifylline (Pentoxil) 400 mg PO DAILY [facility] Last Admin: 05/30/16 08:33 Dose: 400 mg Sertraline HCl (Zoloft) 150 mg PO HS [facility] Last Admin: 05/30/16 22:43 Dose: 150 mg - Labs Labs: 05/30/16 05:20 05/30/16 05:20
[2016-05-31] MEDS: Pantoprazole 40 mg EC Tab PO SCH (06:21)
[2016-05-31] MEDS: QUINIDINE PO SCH ×2 (09:23→20:39)
[2016-05-31] MEDS: DEXTROMETHORPHAN HBR PO SCH ×2 (09:23→20:39)
[2016-05-31] MEDS: TERIFLUNOMIDE 14 MG PO SCH (21:44)
--- NOTE | 2016-05-31 22:27 | CP.PCM.PN ---
Subjective - Date & Time of Evaluation Date of Evaluation: 05/31/16 Time of Evaluation: 16:00 Objective - Vital Signs/Intake and Output Vital Signs (last 24 hours): Temp Pulse Resp BP Pulse Ox 97.7 F 89 20 129/74 96 05/31/16 19:25 05/31/16 19:25 05/31/16 19:25 05/31/16 19:25 05/31/16 19:25 - Medications Medications: Current Medications Acetaminophen (Tylenol 325mg Tab) 325 mg PO Q4 PRN PRN Reason: Fever >100.4 F Acetaminophen (Tylenol 325mg Tab) 650 mg PO Q6 PRN PRN Reason: pain scale 1-10. Albuterol/Ipratropium (Duoneb 3 Mg/0.5 Mg (3 Ml) Ud) 3 ml INH RQ6 PRN PRN Reason: Shortness of Breath Last Admin: 05/30/16 22:00 Dose: 3 ml Aspirin (Ecotrin) 81 mg PO [facility] Last Admin: 05/31/16 21:43 Dose: 81 mg Baclofen (Lioresal) 10 mg PO TID [facility] Last Admin: 05/31/16 17:17 Dose: 10 mg Cholecalciferol (Vitamin D) 2,000 iu PO DAILY [facility] Last Admin: 05/31/16 09:24 Dose: 2,000 iu Folic Acid (Folic Acid) 1 mg PO DAILY [facility] Last Admin: 05/31/16 09:23 Dose: 1 mg Guaifenesin (Robitussin) 100 mg PO Q6 PRN PRN Reason: Cough Last Admin: 05/31/16 21:50 Dose: 100 mg Home Med (Dalfampridine [Ampyra]) 10 mg PO Q12 [facility] Last Admin: 05/31/16 20:38 Dose: 10 mg Home Med (Solifenacin Succinate [Vesicare]) 10 mg PO [facility] Last Admin: 05/31/16 21:44 Dose: 10 mg Home Med (Teriflunomide [Aubagio]) 14 mg PO [facility] Last Admin: 05/31/16 21:44 Dose: 14 mg Home Med (Dextromethorphan Hbr/Quinidine [Nuedexta 20-10 Mg Capsule]) 10 mg PO Q12 [facility] Last Admin: 05/31/16 20:39 Dose: 10 mg Modafinil (Provigil) 200 mg PO DAILY [facility] Last Admin: 05/31/16 09:21 Dose: 200 mg Ondansetron HCl (Zofran Inj) 4 mg IVP Q6 PRN PRN Reason: Nausea/Vomiting Last Admin: 05/24/16 21:36 Dose: 4 mg Pantoprazole Sodium (Protonix Ec Tab) 40 mg PO 0600 [facility] Last Admin: 05/31/16 06:21 Dose: 40 mg Pentoxifylline (Pentoxil) 400 mg PO DAILY [facility] Last Admin: 05/31/16 09:24 Dose: 400 mg Sertraline HCl (Zoloft) 150 mg PO HS [facility] Last Admin: 05/31/16 21:44 Dose: 150 mg - Labs Labs: 05/30/16 05:20 05/30/16 05:20
[2016-06-01] MEDS: Pantoprazole 40 mg EC Tab PO SCH (06:10)
[2016-06-01] MEDS: QUINIDINE PO SCH ×2 (08:48→20:05)
[2016-06-01] MEDS: DEXTROMETHORPHAN HBR PO SCH ×2 (08:48→20:05)
--- NOTE | 2016-06-01 11:55 | CP.PCM.PN ---
Subjective - Date & Time of Evaluation Date of Evaluation: 06/01/16 Time of Evaluation: 10:00 - Subjective Subjective: patient still with weakness of the right side, wants a new brace ( this brace very old) Objective - Vital Signs/Intake and Output Vital Signs (last 24 hours): Temp Pulse Resp BP Pulse Ox 98.1 F 73 20 126/69 95 06/01/16 07:41 06/01/16 07:41 06/01/16 07:41 06/01/16 07:41 06/01/16 07:41 - Medications Medications: Current Medications Acetaminophen (Tylenol 325mg Tab) 325 mg PO Q4 PRN PRN Reason: Fever >100.4 F Acetaminophen (Tylenol 325mg Tab) 650 mg PO Q6 PRN PRN Reason: pain scale 1-10. Albuterol/Ipratropium (Duoneb 3 Mg/0.5 Mg (3 Ml) Ud) 3 ml INH RQ6 PRN PRN Reason: Shortness of Breath Last Admin: 05/30/16 22:00 Dose: 3 ml Aspirin (Ecotrin) 81 mg PO [facility] Last Admin: 05/31/16 21:43 Dose: 81 mg Baclofen (Lioresal) 10 mg PO TID [facility] Last Admin: 06/01/16 09:00 Dose: Not Given Cholecalciferol (Vitamin D) 2,000 iu PO DAILY [facility] Last Admin: 06/01/16 08:48 Dose: 2,000 iu Folic Acid (Folic Acid) 1 mg PO DAILY [facility] Last Admin: 06/01/16 08:49 Dose: 1 mg Guaifenesin (Robitussin) 100 mg PO Q6 PRN PRN Reason: Cough Last Admin: 05/31/16 21:50 Dose: 100 mg Home Med (Dalfampridine [Ampyra]) 10 mg PO Q12 [facility] Last Admin: 06/01/16 08:48 Dose: 10 mg Home Med (Solifenacin Succinate [Vesicare]) 10 mg PO [facility] Last Admin: 05/31/16 21:44 Dose: 10 mg Home Med (Teriflunomide [Aubagio]) 14 mg PO [facility] Last Admin: 05/31/16 21:44 Dose: 14 mg Home Med (Dextromethorphan Hbr/Quinidine [Nuedexta 20-10 Mg Capsule]) 10 mg PO Q12 [facility] Last Admin: 06/01/16 08:48 Dose: 10 mg Modafinil (Provigil) 200 mg PO DAILY [facility] Last Admin: 06/01/16 08:51 Dose: 200 mg Ondansetron HCl (Zofran Inj) 4 mg IVP Q6 PRN PRN Reason: Nausea/Vomiting Last Admin: 05/24/16 21:36 Dose: 4 mg Pantoprazole Sodium (Protonix Ec Tab) 40 mg PO 0600 [facility] Last Admin: 06/01/16 06:10 Dose: 40 mg Pentoxifylline (Pentoxil) 400 mg PO DAILY [facility] Last Admin: 05/31/16 09:24 Dose: 400 mg Sertraline HCl (Zoloft) 150 mg PO HS [facility] Last Admin: 05/31/16 21:44 Dose: 150 mg - Labs Labs: 05/30/16 05:20 05/30/16 05:20 - Head Exam Head Exam: ATRAUMATIC, NORMAL INSPECTION, NORMOCEPHALIC - Eye Exam Eye Exam: PERRL Pupil Exam: NORMAL ACCOMODATION - ENT Exam ENT Exam: Mucous Membranes Moist, Normal Exam - Neck Exam Neck Exam: Normal Inspection - Respiratory Exam Respiratory Exam: NORMAL BREATHING PATTERN - Cardiovascular Exam Cardiovascular Exam: REGULAR RHYTHM - GI/Abdominal Exam GI & Abdominal Exam: Normal Bowel Sounds - Rectal Exam Rectal Exam: NORMAL INSPECTION - Exam External exam: NORMAL EXTERNAL EXAM - Extremities Exam Extremities Exam: Normal Capillary Refill, Normal Inspection - Back Exam Back Exam: NORMAL INSPECTION - Neurological Exam Neurological Exam: Alert, Awake Neuro motor strength exam: Right Upper Extremity: 3, Right Lower Extremity: 3 - Psychiatric Exam Psychiatric exam: Normal Affect, Normal Mood - Skin Skin Exam: Dry, Intact Assessment and Plan (1) Multiple sclerosis exacerbation Assessment & Plan: plan for physical, occupational therapy order new brace for right leg Monitor bladder and lung infection Status: Acute (2) Urinary tract infection Status: Acute
--- NOTE | 2016-06-01 19:25 | CP.PCM.PN ---
Subjective - Date & Time of Evaluation Date of Evaluation: 06/01/16 Time of Evaluation: 19:15 Objective - Vital Signs/Intake and Output Vital Signs (last 24 hours): Temp Pulse Resp BP Pulse Ox 97.9 F 82 20 123/72 96 06/01/16 16:05 06/01/16 16:05 06/01/16 16:05 06/01/16 16:05 06/01/16 16:05 - Medications Medications: Current Medications Acetaminophen (Tylenol 325mg Tab) 325 mg PO Q4 PRN PRN Reason: Fever >100.4 F Acetaminophen (Tylenol 325mg Tab) 650 mg PO Q6 PRN PRN Reason: pain scale 1-10. Albuterol/Ipratropium (Duoneb 3 Mg/0.5 Mg (3 Ml) Ud) 3 ml INH RQ6 PRN PRN Reason: Shortness of Breath Last Admin: 05/30/16 22:00 Dose: 3 ml Aspirin (Ecotrin) 81 mg PO [facility] Last Admin: 05/31/16 21:43 Dose: 81 mg Baclofen (Lioresal) 10 mg PO TID [facility] Last Admin: 06/01/16 16:15 Dose: Not Given Cholecalciferol (Vitamin D) 2,000 iu PO DAILY [facility] Last Admin: 06/01/16 08:48 Dose: 2,000 iu Folic Acid (Folic Acid) 1 mg PO DAILY [facility] Last Admin: 06/01/16 08:49 Dose: 1 mg Guaifenesin (Robitussin) 100 mg PO Q6 PRN PRN Reason: Cough Last Admin: 05/31/16 21:50 Dose: 100 mg Home Med (Dalfampridine [Ampyra]) 10 mg PO Q12 [facility] Last Admin: 06/01/16 08:48 Dose: 10 mg Home Med (Solifenacin Succinate [Vesicare]) 10 mg PO [facility] Last Admin: 05/31/16 21:44 Dose: 10 mg Home Med (Teriflunomide [Aubagio]) 14 mg PO [facility] Last Admin: 05/31/16 21:44 Dose: 14 mg Home Med (Dextromethorphan Hbr/Quinidine [Nuedexta 20-10 Mg Capsule]) 10 mg PO Q12 [facility] Last Admin: 06/01/16 08:48 Dose: 10 mg Modafinil (Provigil) 200 mg PO DAILY [facility] Last Admin: 06/01/16 08:51 Dose: 200 mg Ondansetron HCl (Zofran Inj) 4 mg IVP Q6 PRN PRN Reason: Nausea/Vomiting Last Admin: 05/24/16 21:36 Dose: 4 mg Pantoprazole Sodium (Protonix Ec Tab) 40 mg PO 0600 [facility] Last Admin: 06/01/16 06:10 Dose: 40 mg Pentoxifylline (Pentoxil) 400 mg PO DAILY [facility] Last Admin: 06/01/16 09:00 Dose: 400 mg Sertraline HCl (Zoloft) 150 mg PO HS [facility] Last Admin: 05/31/16 21:44 Dose: 150 mg - Labs Labs: 05/30/16 05:20 05/30/16 05:20
[2016-06-01] MEDS: TERIFLUNOMIDE 14 MG PO SCH (21:20)
[2016-06-01] MEDS: Albuterol-Ipratrop 3 mg / 0.5 (3 ml) UD INH PRN (21:48)
[2016-06-02] MEDS: Pantoprazole 40 mg EC Tab PO SCH (06:22)
[2016-06-02] MEDS: DEXTROMETHORPHAN HBR PO SCH ×2 (09:00→21:14)
[2016-06-02] MEDS: QUINIDINE PO SCH ×2 (09:00→21:14)
[2016-06-02] MEDS: Albuterol-Ipratrop 3 mg / 0.5 (3 ml) UD INH PRN (21:29)
[2016-06-02] MEDS: TERIFLUNOMIDE 14 MG PO SCH (22:06)
--- NOTE | 2016-06-02 22:26 | CP.PCM.PN ---
Subjective - Date & Time of Evaluation Date of Evaluation: 06/02/16 Time of Evaluation: 18:05 Objective - Vital Signs/Intake and Output Vital Signs (last 24 hours): Temp Pulse Resp BP Pulse Ox 98.2 F 86 20 121/69 94 L 06/02/16 20:34 06/02/16 20:34 06/02/16 20:34 06/02/16 20:34 06/02/16 20:34 - Medications Medications: Current Medications Acetaminophen (Tylenol 325mg Tab) 325 mg PO Q4 PRN PRN Reason: Fever >100.4 F Acetaminophen (Tylenol 325mg Tab) 650 mg PO Q6 PRN PRN Reason: pain scale 1-10. Last Admin: 06/02/16 22:09 Dose: 650 mg Albuterol/Ipratropium (Duoneb 3 Mg/0.5 Mg (3 Ml) Ud) 3 ml INH RQ6 PRN PRN Reason: Shortness of Breath Last Admin: 06/02/16 21:29 Dose: 3 ml Aspirin (Ecotrin) 81 mg PO [facility] Last Admin: 06/02/16 22:06 Dose: 81 mg Baclofen (Lioresal) 10 mg PO 0900,1300,2100 [facility] Last Admin: 06/02/16 20:41 Dose: 10 mg Cholecalciferol (Vitamin D) 2,000 iu PO DAILY [facility] Last Admin: 06/02/16 09:05 Dose: 2,000 iu Folic Acid (Folic Acid) 1 mg PO DAILY [facility] Last Admin: 06/02/16 09:12 Dose: 1 mg Guaifenesin (Robitussin) 100 mg PO Q6 PRN PRN Reason: Cough Last Admin: 05/31/16 21:50 Dose: 100 mg Home Med (Dalfampridine [Ampyra]) 10 mg PO Q12 [facility] Last Admin: 06/02/16 21:14 Dose: 10 mg Home Med (Solifenacin Succinate [Vesicare]) 10 mg PO [facility] Last Admin: 06/02/16 22:06 Dose: 10 mg Home Med (Teriflunomide [Aubagio]) 14 mg PO [facility] Last Admin: 06/02/16 22:06 Dose: 14 mg Home Med (Dextromethorphan Hbr/Quinidine [Nuedexta 20-10 Mg Capsule]) 10 mg PO Q12 [facility] Last Admin: 06/02/16 21:14 Dose: 10 mg Modafinil (Provigil) 200 mg PO DAILY [facility] Last Admin: 06/02/16 09:10 Dose: 200 mg Ondansetron HCl (Zofran Inj) 4 mg IVP Q6 PRN PRN Reason: Nausea/Vomiting Last Admin: 05/24/16 21:36 Dose: 4 mg Pantoprazole Sodium (Protonix Ec Tab) 40 mg PO 0600 [facility] Last Admin: 06/02/16 06:22 Dose: 40 mg Pentoxifylline (Pentoxil) 400 mg PO DAILY [facility] Last Admin: 06/02/16 09:14 Dose: 400 mg Sertraline HCl (Zoloft) 150 mg PO HS [facility] Last Admin: 06/02/16 22:07 Dose: 150 mg - Labs Labs: 05/30/16 05:20 05/30/16 05:20
[2016-06-03] MEDS: Pantoprazole 40 mg EC Tab PO SCH (06:23)
[2016-06-03] MEDS: QUINIDINE PO SCH ×2 (08:39→21:05)
[2016-06-03] MEDS: DEXTROMETHORPHAN HBR PO SCH ×2 (08:39→21:05)
--- NOTE | 2016-06-03 13:40 | PN ---
DATE: 06/03/2016 A 65-year-old female with exacerbation of multiple sclerosis. No acute complaints at present with ge neralized weakness. PHYSICAL EXAMINATION: VITAL SIGNS: Stable. NECK: Supple. CHEST: Symmetrical. HEART: Sounds S1, S2. ABDOMEN: Benign. EXTREMITIES: No clubbing, cyanosis, or edema. IMPRESSION: Multiple sclerosis exacerbation, urinary tract infection, status post pneumonia. PLAN: Physical therapy, occupational therapy for range of motion, strengthening, transfers, ambulati on and gait training, to consider new brace for the leg. Monitor the urine to prevent further urine infection. Continue with acute rehabilitation program. Edgar Raygoza MD cc: [id number] TT: 06/03/2016 13:39:55 Confirmation # [id number] Dictation # [id number]
[2016-06-03] MEDS: Albuterol-Ipratrop 3 mg / 0.5 (3 ml) UD INH PRN (21:19)
[2016-06-03] MEDS: TERIFLUNOMIDE 14 MG PO SCH (21:51)
[2016-06-04] MEDS: Pantoprazole 40 mg EC Tab PO SCH (06:08)
[2016-06-04] MEDS: DEXTROMETHORPHAN HBR PO SCH ×2 (08:33→20:50)
[2016-06-04] MEDS: QUINIDINE PO SCH ×2 (08:33→20:50)
[2016-06-04] MEDS: TERIFLUNOMIDE 14 MG PO SCH (21:08)
[2016-06-04] MEDS: Albuterol-Ipratrop 3 mg / 0.5 (3 ml) UD INH PRN (21:24)
--- NOTE | 2016-06-04 23:11 | CP.PCM.PN ---
Subjective - Date & Time of Evaluation Date of Evaluation: 06/04/16 Time of Evaluation: 18:15 Objective - Vital Signs/Intake and Output Vital Signs (last 24 hours): Temp Pulse Resp BP Pulse Ox 97.5 F L 80 20 139/75 95 06/04/16 21:00 06/04/16 21:00 06/04/16 21:00 06/04/16 21:00 06/04/16 21:00 - Medications Medications: Current Medications Acetaminophen (Tylenol 325mg Tab) 325 mg PO Q4 PRN PRN Reason: Fever >100.4 F Acetaminophen (Tylenol 325mg Tab) 650 mg PO Q6 PRN PRN Reason: pain scale 1-10. Last Admin: 06/04/16 00:24 Dose: 650 mg Albuterol/Ipratropium (Duoneb 3 Mg/0.5 Mg (3 Ml) Ud) 3 ml INH RQ6 PRN PRN Reason: Shortness of Breath Last Admin: 06/04/16 21:24 Dose: 3 ml Aspirin (Ecotrin) 81 mg PO HS [facility] Last Admin: 06/04/16 21:08 Dose: 81 mg Baclofen (Lioresal) 10 mg PO 2100 [facility] Last Admin: 06/04/16 20:50 Dose: 10 mg Cholecalciferol (Vitamin D) 2,000 iu PO DAILY [facility] Last Admin: 06/04/16 08:34 Dose: 2,000 iu Folic Acid (Folic Acid) 1 mg PO DAILY [facility] Last Admin: 06/04/16 08:33 Dose: 1 mg Guaifenesin (Robitussin) 100 mg PO Q6 PRN PRN Reason: Cough Last Admin: 05/31/16 21:50 Dose: 100 mg Home Med (Dalfampridine [Ampyra]) 10 mg PO Q12 [facility] Last Admin: 06/04/16 20:50 Dose: 10 mg Home Med (Solifenacin Succinate [Vesicare]) 10 mg PO HS [facility] Last Admin: 06/04/16 21:08 Dose: 10 mg Home Med (Teriflunomide [Aubagio]) 14 mg PO HS [facility] Last Admin: 06/04/16 21:08 Dose: 14 mg Home Med (Dextromethorphan Hbr/Quinidine [Nuedexta 20-10 Mg Capsule]) 10 mg PO Q12 [facility] Last Admin: 06/04/16 20:50 Dose: 10 mg Modafinil (Provigil) 200 mg PO DAILY [facility] Last Admin: 06/04/16 08:35 Dose: 200 mg Ondansetron HCl (Zofran Inj) 4 mg IVP Q6 PRN PRN Reason: Nausea/Vomiting Last Admin: 05/24/16 21:36 Dose: 4 mg Pantoprazole Sodium (Protonix Ec Tab) 40 mg PO 0600 [facility] Last Admin: 06/04/16 06:08 Dose: 40 mg Pentoxifylline (Pentoxil) 400 mg PO DAILY [facility] Last Admin: 06/04/16 08:34 Dose: 400 mg Sertraline HCl (Zoloft) 150 mg PO HS [facility] Last Admin: 06/04/16 21:08 Dose: 150 mg - Labs Labs: 05/30/16 05:20 05/30/16 05:20
[2016-06-05] MEDS: Pantoprazole 40 mg EC Tab PO SCH (06:43)
[2016-06-05] MEDS: QUINIDINE PO SCH ×2 (09:10→21:20)
[2016-06-05] MEDS: DEXTROMETHORPHAN HBR PO SCH ×2 (09:10→21:20)
--- NOTE | 2016-06-05 14:56 | CP.PCM.PN ---
Subjective - Date & Time of Evaluation Date of Evaluation: 06/05/16 Time of Evaluation: 07:00 - Subjective Subjective: patient with acute complaints at present, generalized Objective - Vital Signs/Intake and Output Vital Signs (last 24 hours): Temp Pulse Resp BP Pulse Ox 97.6 F 85 20 133/50 L 99 06/05/16 08:37 06/05/16 08:37 06/05/16 08:37 06/05/16 08:37 06/05/16 08:37 - Medications Medications: Current Medications Acetaminophen (Tylenol 325mg Tab) 325 mg PO Q4 PRN PRN Reason: Fever >100.4 F Acetaminophen (Tylenol 325mg Tab) 650 mg PO Q6 PRN PRN Reason: pain scale 1-10. Last Admin: 06/04/16 00:24 Dose: 650 mg Albuterol/Ipratropium (Duoneb 3 Mg/0.5 Mg (3 Ml) Ud) 3 ml INH RQ6 PRN PRN Reason: Shortness of Breath Last Admin: 06/04/16 21:24 Dose: 3 ml Aspirin (Ecotrin) 81 mg PO HS [facility] Last Admin: 06/04/16 21:08 Dose: 81 mg Baclofen (Lioresal) 10 mg PO 2100 [facility] Last Admin: 06/04/16 20:50 Dose: 10 mg Cholecalciferol (Vitamin D) 2,000 iu PO DAILY [facility] Last Admin: 06/05/16 09:10 Dose: 2,000 iu Folic Acid (Folic Acid) 1 mg PO DAILY [facility] Last Admin: 06/05/16 09:10 Dose: 1 mg Guaifenesin (Robitussin) 100 mg PO Q6 PRN PRN Reason: Cough Last Admin: 05/31/16 21:50 Dose: 100 mg Home Med (Dalfampridine [Ampyra]) 10 mg PO Q12 [facility] Last Admin: 06/05/16 09:10 Dose: 10 mg Home Med (Solifenacin Succinate [Vesicare]) 10 mg PO HS [facility] Last Admin: 06/04/16 21:08 Dose: 10 mg Home Med (Teriflunomide [Aubagio]) 14 mg PO HS [facility] Last Admin: 06/04/16 21:08 Dose: 14 mg Home Med (Dextromethorphan Hbr/Quinidine [Nuedexta 20-10 Mg Capsule]) 10 mg PO Q12 [facility] Last Admin: 06/05/16 09:10 Dose: 10 mg Modafinil (Provigil) 200 mg PO DAILY [facility] Last Admin: 06/05/16 09:56 Dose: 200 mg Ondansetron HCl (Zofran Inj) 4 mg IVP Q6 PRN PRN Reason: Nausea/Vomiting Last Admin: 05/24/16 21:36 Dose: 4 mg Pantoprazole Sodium (Protonix Ec Tab) 40 mg PO 0600 [facility] Last Admin: 06/05/16 06:43 Dose: 40 mg Pentoxifylline (Pentoxil) 400 mg PO DAILY [facility] Last Admin: 06/05/16 09:10 Dose: 400 mg Sertraline HCl (Zoloft) 150 mg PO HS [facility] Last Admin: 06/04/16 21:08 Dose: 150 mg - Labs Labs: 05/30/16 05:20 05/30/16 05:20 - Head Exam Head Exam: ATRAUMATIC, NORMAL INSPECTION, NORMOCEPHALIC - Eye Exam Eye Exam: PERRL Pupil Exam: NORMAL ACCOMODATION - ENT Exam ENT Exam: Mucous Membranes Moist, Normal Exam - Respiratory Exam Respiratory Exam: NORMAL BREATHING PATTERN - Cardiovascular Exam Cardiovascular Exam: REGULAR RHYTHM - GI/Abdominal Exam GI & Abdominal Exam: Normal Bowel Sounds - Rectal Exam Rectal Exam: NORMAL INSPECTION - Extremities Exam Extremities Exam: Normal Capillary Refill - Back Exam Back Exam: NORMAL INSPECTION - Neurological Exam Neurological Exam: Alert, Awake Neuro motor strength exam: Left Upper Extremity: 4, Right Upper Extremity: 3, Left Lower Extremity: 4, Right Lower Extremity: 3 - Psychiatric Exam Psychiatric exam: Normal Affect, Normal Mood - Skin Skin Exam: Dry, Intact Assessment and Plan (1) Multiple sclerosis exacerbation Assessment & Plan: physical, occupational and rec therapy discussed brace and home issues Status: Acute (2) Urinary tract infection Status: Acute
[2016-06-05] MEDS: TERIFLUNOMIDE 14 MG PO SCH (21:21)
[2016-06-05] MEDS: Albuterol-Ipratrop 3 mg / 0.5 (3 ml) UD INH PRN (21:46)
--- NOTE | 2016-06-05 23:35 | CP.PCM.PN ---
Subjective - Date & Time of Evaluation Date of Evaluation: 06/05/16 Time of Evaluation: 13:45 Objective - Vital Signs/Intake and Output Vital Signs (last 24 hours): Temp Pulse Resp BP Pulse Ox 97.7 F 70 20 133/64 96 06/05/16 20:06 06/05/16 20:06 06/05/16 20:06 06/05/16 20:06 06/05/16 20:06 - Medications Medications: Current Medications Acetaminophen (Tylenol 325mg Tab) 325 mg PO Q4 PRN PRN Reason: Fever >100.4 F Acetaminophen (Tylenol 325mg Tab) 650 mg PO Q6 PRN PRN Reason: pain scale 1-10. Last Admin: 06/04/16 00:24 Dose: 650 mg Albuterol/Ipratropium (Duoneb 3 Mg/0.5 Mg (3 Ml) Ud) 3 ml INH RQ6 PRN PRN Reason: Shortness of Breath Last Admin: 06/05/16 21:46 Dose: 3 ml Aspirin (Ecotrin) 81 mg PO HS [facility] Last Admin: 06/05/16 21:20 Dose: 81 mg Baclofen (Lioresal) 10 mg PO 2100 [facility] Last Admin: 06/05/16 21:20 Dose: 10 mg Cholecalciferol (Vitamin D) 2,000 iu PO DAILY [facility] Last Admin: 06/05/16 09:10 Dose: 2,000 iu Folic Acid (Folic Acid) 1 mg PO DAILY [facility] Last Admin: 06/05/16 09:10 Dose: 1 mg Guaifenesin (Robitussin) 100 mg PO Q6 PRN PRN Reason: Cough Last Admin: 05/31/16 21:50 Dose: 100 mg Home Med (Dalfampridine [Ampyra]) 10 mg PO Q12 [facility] Last Admin: 06/05/16 21:20 Dose: 10 mg Home Med (Solifenacin Succinate [Vesicare]) 10 mg PO HS [facility] Last Admin: 06/05/16 21:21 Dose: 10 mg Home Med (Teriflunomide [Aubagio]) 14 mg PO HS [facility] Last Admin: 06/05/16 21:21 Dose: 14 mg Home Med (Dextromethorphan Hbr/Quinidine [Nuedexta 20-10 Mg Capsule]) 10 mg PO Q12 [facility] Last Admin: 06/05/16 21:20 Dose: 10 mg Modafinil (Provigil) 200 mg PO DAILY [facility] Last Admin: 06/05/16 09:56 Dose: 200 mg Ondansetron HCl (Zofran Inj) 4 mg IVP Q6 PRN PRN Reason: Nausea/Vomiting Last Admin: 05/24/16 21:36 Dose: 4 mg Pantoprazole Sodium (Protonix Ec Tab) 40 mg PO 0600 [facility] Last Admin: 06/05/16 06:43 Dose: 40 mg Pentoxifylline (Pentoxil) 400 mg PO DAILY [facility] Last Admin: 06/05/16 09:10 Dose: 400 mg Sertraline HCl (Zoloft) 150 mg PO HS [facility] Last Admin: 06/05/16 21:22 Dose: 150 mg - Labs Labs: 05/30/16 05:20 05/30/16 05:20
[2016-06-06] MEDS: Pantoprazole 40 mg EC Tab PO SCH (06:47)
[2016-06-06] MEDS: QUINIDINE PO SCH ×2 (08:58→21:06)
[2016-06-06] MEDS: DEXTROMETHORPHAN HBR PO SCH ×2 (08:58→21:06)
--- NOTE | 2016-06-06 12:13 | PSY.TMCNF ---
Nursing - Vital Signs Vital Signs (Last 8 hours): Vital Signs 06/06/16 06/06/16 09:05 10:24 Temperature 97.8 F Pulse Rate 68 84 Respiratory 22 Rate Blood Pressure 137/70 O2 Sat by Pulse 95 96 Oximetry Pain: 0 - Precautions: Precautions: Fall Prevention - Medications/Other Issues Comment: Pt at low nutritonal risk. no goals. Follow-up due on 06/06/2016 - Consults Comment: Dr. Nieto-Doreen - Toileting Toileting: Dependent - Bladder Management Bladder Pattern: Incontinent (at times) Voiding Method: Diaper - Bowel Management Bowel Pattern: Normal Bowel Management: Dependent Frequency of Accidents: 1 - Transfers Transfers: Maximal Assistance - ADL's ADL's: Maximal Assistance - Patient/Family Teaching Comments: Care with MS and safety precautions - Goals/Time Frame Comments: Pt was seen awake and alert laying in bed. Pt agreeable to visit. Pt was able to identify her leisure interests such as playing scrabble, watching television, playing cards, and dominoes. Pt reported that [facility] which has [facility] programs and meals for pt throughout day. Pt utilizes scooter for mobility within the community and used to visit the [facility] at [facility]. 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 Pt's mood was stable-positive throughout visit. Physical Therapy - Bed Mobility Bed Mobility: Supervision - Transfers Sit to Stand: Supervision, Verbal Cues, Contact Guard - Ambulation Level of Assistance: Supervision, Verbal Cues, Contact Guard Distance (ft.): 100 Assistive Devices: Rolling Walker - Stair Negotiation Stairs: Level of Assistance: Contact Guard, Minimal Assistance Number of Stairs: 4 Handrails: Bilateral Stairs: Assistive Devices: Left Handrail, Right Handrail Comment: * pt does not have stairs at home but occasionally visits her brother with stairs to enter - Standing Balance Static Stand: Supervision Dynamic Stand: Minimal Assistance - Pain Management Techniques: Heat, Massage Comment: Pt occasionally complains of pain in B shoulders and LLE - Insight/Carryover Insight/Carryover: Good - Patient/Family Education Comment: Pt education for increased safeyt awareness and proper techniques during functional mobility training - Assessment/Plan Assessment: Pt continues to participate in 1:1 and group recreation therapy sessions throughout stay on unit. Depending on the task, pt can be independent- mod I. Pt enjoys socializing with peers and presents with improved mood state. Pt will continue to benefit from participating in recreation therapy sessions and receive education on MS resources within the community. - Goals Timeframe: 2 weeks Goals: Sit < > supine mod I. Sit < > stand and bed < > WC transfers mod I. Ambulate houshold distances (50 ft) mod I with RW - Provider Therapist: Alicia Ca PT, DPT License Number: [id number] Occupational Therapy - Arousal/Attention/Orientation Patient Orientation: Person, Place, Time, Appropriate to Age, Appropriate to Situation - ADL/IADL Self Feeding: Supervision, Set-up Help Grooming: Supervision, Set-up Help Bathing-Upper Extremity: Supervision, Verbal Cues, Set-up Help Bathing-Lower Extremity: Verbal Cues, Set-up Help, Minimal Assistance Dressing-Upper Extremity: Verbal Cues, Set-up Help, Minimal Assistance Dressing-Lower Extremity: Verbal Cues, Set-up Help, Moderate Assistance Homemaking: Not Applicable - Sitting Balance Static Sitting: Supervision Dynamic Sitting: Requires supervision - Transfers Wheelchair to Bed Transfers: Contact Guard Toilet Transfers: Contact Guard Tub Transfers: Minimal Assistance - Wheelchair Management Level of Assistance: Supervision - Upper Extremity Status Right Upper Extremity Comment: ROM = WFL Left Upper Extremity Comment: ROM = WFL - Pain Alleviating Techniques: Heat, Massage Comment: Pt occasionally complains of pain in B shoulders and LLE - Insight/Carryover Insight/Carryover: Good - Patient/Family Education Comment: Pt education for increased safeyt awareness and proper techniques during functional mobility training - Assessment/Plan Assessment: Pt continues to participate in 1:1 and group recreation therapy sessions throughout stay on unit. Depending on the task, pt can be independent- mod I. Pt enjoys socializing with peers and presents with improved mood state. Pt will continue to benefit from participating in recreation therapy sessions and receive education on MS resources within the community. - Goals Timeframe: 2 weeks Goals: Sit < > supine mod I. Sit < > stand and bed < > WC transfers mod I. Ambulate houshold distances (50 ft) mod I with RW - Provider Therapist: Mikayla Guzman MS, OTR/L Speech Therapy - Plan Assessment: Pt continues to participate in 1:1 and group recreation therapy sessions throughout stay on unit. Depending on the task, pt can be independent- mod I. Pt enjoys socializing with peers and presents with improved mood state. Pt will continue to benefit from participating in recreation therapy sessions and receive education on MS resources within the community. Recreational Therapy - Participation Participation: Participates in Individual and/or Group Sessions - Attendance Attendance: 3-5 times per week - Activities Leisure Activities: Cards and Games - Socialization Level of Socialization: Initiates/interacts freely with care givers and peer - Diversional Time Diversional Time: likes dominoes, bingo, cards, etc. - Assessment Assessment/Plan: Pt continues to participate in 1:1 and group recreation therapy sessions throughout stay on unit. Depending on the task, pt can be independent-mod I. Pt enjoys socializing with peers and presents with improved mood state. Pt will continue to benefit from participating in recreation therapy sessions and receive education on MS resources within the community. Problems Currently Limiting Participation: weakness, decrease community leisure awareness level Goals and Time Frame: Pt will be encouraged to participate in 1:1 and group recreation therapy sessions 3-5x week to improve arousal level, mood state, and leisure awareness level. - Provider Therapist: Zuleika Sandra, NAPHTHALENE STILL OPERATOR #[id number] Nutrition - Current Diet Current Diet/ Supplement/ Feedings: Regular diet - Appetite Percent Meal Consumed: 75-100% - Comments Comments: Care with MS and safety precautions - Assessment/Goals/Time Frame Assessment/Goals/Time Frame: Pt at low nutritonal risk. no goals. Follow-up due on 06/06/2016 - Provider Provider: Marissa Barrios RD Case Management - Psychosocial Assessment Support Systems: Patient lives alone, however, sibling and friends are supportive and involved in care. Corrine Carvajal (sister)- [phone] Psychological Interventions/Needs: Patient is alert and oriented x3 and able to verbalize needs. Patient is cooperative and motivated for therapy Discharge Concerns: Patient with limited support during the day Patient/Family Meeting: CM met with patient and rehab team Intervention/Goal/Outcome:: 1. Goal: intermittent supervision overall. 2. Plan: Outpatient therapy at [facility]. 3. DME needs- RW and w/c. 4. f/u appts. 5. continued emotional support. 6. caregiver training? 7. 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 8.Tentative discharge date: - Discharge Plan Discharge Plan: Outpatient rehab - Provider Provider: MARYAM Meier, [employer] PS[employer]CHOLOG[employer] FACULTY MEMBER License Number: [id number] Rehabilitation Plan - Discharge Plan Estimated Date of Discharge: 06/08/16 Discharge to: Subacute
--- NOTE | 2016-06-06 16:13 | CP.PCM.PN ---
Subjective - Date & Time of Evaluation Date of Evaluation: 06/06/16 Time of Evaluation: 16:12 - Subjective Subjective: Patient seen in room and in rec therapy she is in good spirits denies pain feels that she is about 30% off from her baseline, but has made very steady gains since admission and is very happy with progress continue current care there is a question of d/c date which will be addressed with Dr Nieto on return Objective - Vital Signs/Intake and Output Vital Signs (last 24 hours): Temp Pulse Resp BP Pulse Ox 97.8 F 84 22 137/70 96 06/06/16 09:05 06/06/16 10:24 06/06/16 09:05 06/06/16 09:05 06/06/16 10:24 - Medications Medications: Current Medications Acetaminophen (Tylenol 325mg Tab) 325 mg PO Q4 PRN PRN Reason: Fever >100.4 F Acetaminophen (Tylenol 325mg Tab) 650 mg PO Q6 PRN PRN Reason: pain scale 1-10. Last Admin: 06/04/16 00:24 Dose: 650 mg Albuterol/Ipratropium (Duoneb 3 Mg/0.5 Mg (3 Ml) Ud) 3 ml INH RQ6 PRN PRN Reason: Shortness of Breath Last Admin: 06/05/16 21:46 Dose: 3 ml Aspirin (Ecotrin) 81 mg PO HS [facility] Last Admin: 06/05/16 21:20 Dose: 81 mg Baclofen (Lioresal) 10 mg PO 2100 [facility] Last Admin: 06/05/16 21:20 Dose: 10 mg Cholecalciferol (Vitamin D) 2,000 iu PO DAILY [facility] Last Admin: 06/06/16 09:00 Dose: 2,000 iu Folic Acid (Folic Acid) 1 mg PO DAILY [facility] Last Admin: 06/06/16 08:59 Dose: 1 mg Guaifenesin (Robitussin) 100 mg PO Q6 PRN PRN Reason: Cough Last Admin: 05/31/16 21:50 Dose: 100 mg Home Med (Dalfampridine [Ampyra]) 10 mg PO Q12 [facility] Last Admin: 06/06/16 08:57 Dose: 10 mg Home Med (Solifenacin Succinate [Vesicare]) 10 mg PO HS [facility] Last Admin: 06/05/16 21:21 Dose: 10 mg Home Med (Teriflunomide [Aubagio]) 14 mg PO HS [facility] Last Admin: 06/05/16 21:21 Dose: 14 mg Home Med (Dextromethorphan Hbr/Quinidine [Nuedexta 20-10 Mg Capsule]) 10 mg PO Q12 [facility] Last Admin: 06/06/16 08:58 Dose: 10 mg Modafinil (Provigil) 200 mg PO DAILY [facility] Last Admin: 06/06/16 09:04 Dose: 200 mg Ondansetron HCl (Zofran Inj) 4 mg IVP Q6 PRN PRN Reason: Nausea/Vomiting Last Admin: 05/24/16 21:36 Dose: 4 mg Pantoprazole Sodium (Protonix Ec Tab) 40 mg PO 0600 [facility] Last Admin: 06/06/16 06:47 Dose: 40 mg Pentoxifylline (Pentoxil) 400 mg PO DAILY [facility] Last Admin: 06/06/16 09:00 Dose: 400 mg Sertraline HCl (Zoloft) 150 mg PO HS [facility] Last Admin: 06/05/16 21:22 Dose: 150 mg - Labs Labs: 05/30/16 05:20 05/30/16 05:20
--- NOTE | 2016-06-06 19:03 | CP.PCM.CON ---
History of Present Illness - History of Present Illness History of Present Illness: 65 year old female with PMHx of multiple sclerosis was seen resting comfortably at bedside regarding elongated toenails. Patient states that is has been at least a month since her nails have been trimmed. She states that her nails are elongated and do cause her some pain. She denies any n/v/f/c/sob/cp. Past Patient History - Past Medical History & Family History Past Medical History?: Yes - Past Social History Smoking Status: Never Smoked - CARDIAC Hx Cardiac Disorders: No - PULMONARY Hx Pneumonia: Yes (X2-LAST TIME WAS ABOUT 20YRS. AGO) - NEUROLOGICAL Hx Multiple Sclerosis: Yes ("SECONDARY PROGRESSIVE") - HEENT Hx HEENT Problems: Yes Hx Cataracts: Yes (BILAT. -NO SURGERY YET) - RENAL Hx Chronic Kidney Disease: Yes - ENDOCRINE/METABOLIC Hx Endocrine Disorders: No - HEMATOLOGICAL/ONCOLOGICAL Hx AIDS: No Hx Human Immunodeficiency Virus (HIV): No - INTEGUMENTARY Hx Dermatological Problems: Yes Other/Comment: HX:MASS RIGHT INDEX FINGER - MUSCULOSKELETAL/RHEUMATOLOGICAL Hx Falls: Yes - GASTROINTESTINAL Hx Gastrointestinal Disorders: Yes ("CONSTIPATION") - GENITOURINARY/GYNECOLOGICAL Hx Genitourinary Disorders: No Other/Comment: neurogenis bladder. - PSYCHIATRIC Hx Substance Use: No - SURGICAL HISTORY Hx Surgeries: Yes Hx Tubal Ligation: Yes Other/Comment: EXPLORATORY LAPS. CYSTOSCOPIES - ANESTHESIA Hx Anesthesia: Yes Hx Anesthesia Reactions: No Hx Malignant Hyperthermia: No Meds Allergies/Adverse Reactions: Allergies Allergy/AdvReac Type Severity Reaction Status Date / Time morphine Allergy Severe SHORTNESS Verified 05/22/16 16:59 OF BREATH latex Allergy Intermediate RASH Verified 05/22/16 16:59 - Medications Medications: Current Medications Acetaminophen (Tylenol 325mg Tab) 325 mg PO Q4 PRN PRN Reason: Fever >100.4 F Acetaminophen (Tylenol 325mg Tab) 650 mg PO Q6 PRN PRN Reason: pain scale 1-10. Last Admin: 06/04/16 00:24 Dose: 650 mg Albuterol/Ipratropium (Duoneb 3 Mg/0.5 Mg (3 Ml) Ud) 3 ml INH RQ6 PRN PRN Reason: Shortness of Breath Last Admin: 06/05/16 21:46 Dose: 3 ml Aspirin (Ecotrin) 81 mg PO HS [facility] Last Admin: 06/05/16 21:20 Dose: 81 mg Baclofen (Lioresal) 10 mg PO 2100 [facility] Last Admin: 06/05/16 21:20 Dose: 10 mg Cholecalciferol (Vitamin D) 2,000 iu PO DAILY [facility] Last Admin: 06/06/16 09:00 Dose: 2,000 iu Folic Acid (Folic Acid) 1 mg PO DAILY [facility] Last Admin: 06/06/16 08:59 Dose: 1 mg Guaifenesin (Robitussin) 100 mg PO Q6 PRN PRN Reason: Cough Last Admin: 05/31/16 21:50 Dose: 100 mg Home Med (Dalfampridine [Ampyra]) 10 mg PO Q12 [facility] Last Admin: 06/06/16 08:57 Dose: 10 mg Home Med (Solifenacin Succinate [Vesicare]) 10 mg PO HS [facility] Last Admin: 06/05/16 21:21 Dose: 10 mg Home Med (Teriflunomide [Aubagio]) 14 mg PO [facility] Last Admin: 06/05/16 21:21 Dose: 14 mg Home Med (Dextromethorphan Hbr/Quinidine [Nuedexta 20-10 Mg Capsule]) 10 mg PO Q12 [facility] Last Admin: 06/06/16 08:58 Dose: 10 mg Modafinil (Provigil) 200 mg PO DAILY [facility] Last Admin: 06/06/16 09:04 Dose: 200 mg Ondansetron HCl (Zofran Inj) 4 mg IVP Q6 PRN PRN Reason: Nausea/Vomiting Last Admin: 05/24/16 21:36 Dose: 4 mg Pantoprazole Sodium (Protonix Ec Tab) 40 mg PO 0600 [facility] Last Admin: 06/06/16 06:47 Dose: 40 mg Pentoxifylline (Pentoxil) 400 mg PO DAILY [facility] Last Admin: 06/06/16 09:00 Dose: 400 mg Sertraline HCl (Zoloft) 150 mg PO [facility] Last Admin: 06/05/16 21:22 Dose: 150 mg Physical Exam - Constitutional Appears: Well, Non-toxic, No Acute Distress - Extremities Exam Additional comments: Vasc: DP and PT pulses palpable 2/4 b/l. Skin temperature warm to cool from proximal to distal b/l. CFT >3 seconds to all digits b/l. No edema noted to b/l LE Neuro: Gross sensation intact b/l. Derm: Nails 1-5 b/l are thickened and elongated. Webspaces 1-5 are clean, dry, intact. No open lesions noted Ortho: Pain on palpation to nails 1-5 b/l. - Neurological Exam Neurological exam: Alert, Oriented x3 - Psychiatric Exam Psychiatric exam: Normal Affect, Normal Mood Results - Vital Signs Recent Vital Signs: Last Vital Signs Temp 96.6 F L 06/06/16 16:39 Pulse 80 06/06/16 16:39 Resp 18 06/06/16 16:39 BP 111/56 L 06/06/16 16:39 Pulse Ox 96 06/06/16 16:39 - Labs Result Diagrams: 05/30/16 05:20 05/30/16 05:20 Assessment & Plan - Assessment and Plan (Free Text) Assessment: 65 year old female with elongated toenails 1-5 b/l Plan: Patient examined and evaluated Chart and vitals reviewed Discussed in detail with attending, Dr. Feldman Nails 1-5 b/l were debrided in thickness and in length with nail nippers without incident Thank you for allowing us to care for your patient Please re-consult as needed
[2016-06-06] MEDS: TERIFLUNOMIDE 14 MG PO SCH (21:08)
--- NOTE | 2016-06-06 22:19 | CP.PCM.PN ---
Subjective - Date & Time of Evaluation Date of Evaluation: 06/06/16 Time of Evaluation: 17:00 Objective - Vital Signs/Intake and Output Vital Signs (last 24 hours): Temp Pulse Resp BP Pulse Ox 97.4 F L 77 20 114/69 96 06/06/16 20:33 06/06/16 20:33 06/06/16 20:33 06/06/16 20:33 06/06/16 20:33 - Medications Medications: Current Medications Acetaminophen (Tylenol 325mg Tab) 325 mg PO Q4 PRN PRN Reason: Fever >100.4 F Acetaminophen (Tylenol 325mg Tab) 650 mg PO Q6 PRN PRN Reason: pain scale 1-10. Last Admin: 06/04/16 00:24 Dose: 650 mg Albuterol/Ipratropium (Duoneb 3 Mg/0.5 Mg (3 Ml) Ud) 3 ml INH RQ6 PRN PRN Reason: Shortness of Breath Last Admin: 06/05/16 21:46 Dose: 3 ml Aspirin (Ecotrin) 81 mg PO HS [facility] Last Admin: 06/06/16 21:06 Dose: 81 mg Baclofen (Lioresal) 10 mg PO 2100 [facility] Last Admin: 06/06/16 20:54 Dose: 10 mg Cholecalciferol (Vitamin D) 2,000 iu PO DAILY [facility] Last Admin: 06/06/16 09:00 Dose: 2,000 iu Folic Acid (Folic Acid) 1 mg PO DAILY [facility] Last Admin: 06/06/16 08:59 Dose: 1 mg Guaifenesin (Robitussin) 100 mg PO Q6 PRN PRN Reason: Cough Last Admin: 05/31/16 21:50 Dose: 100 mg Home Med (Dalfampridine [Ampyra]) 10 mg PO Q12 [facility] Last Admin: 06/06/16 21:08 Dose: 10 mg Home Med (Solifenacin Succinate [Vesicare]) 10 mg PO HS [facility] Last Admin: 06/06/16 21:08 Dose: 10 mg Home Med (Teriflunomide [Aubagio]) 14 mg PO HS [facility] Last Admin: 06/06/16 21:08 Dose: 14 mg Home Med (Dextromethorphan Hbr/Quinidine [Nuedexta 20-10 Mg Capsule]) 10 mg PO Q12 [facility] Last Admin: 06/06/16 21:06 Dose: 10 mg Modafinil (Provigil) 200 mg PO DAILY [facility] Last Admin: 06/06/16 09:04 Dose: 200 mg Ondansetron HCl (Zofran Inj) 4 mg IVP Q6 PRN PRN Reason: Nausea/Vomiting Last Admin: 05/24/16 21:36 Dose: 4 mg Pantoprazole Sodium (Protonix Ec Tab) 40 mg PO 0600 [facility] Last Admin: 06/06/16 06:47 Dose: 40 mg Pentoxifylline (Pentoxil) 400 mg PO DAILY [facility] Last Admin: 06/06/16 09:00 Dose: 400 mg Sertraline HCl (Zoloft) 150 mg PO HS [facility] Last Admin: 06/06/16 21:05 Dose: 150 mg - Labs Labs: 05/30/16 05:20 05/30/16 05:20
[2016-06-07] MEDS: Pantoprazole 40 mg EC Tab PO SCH (06:05)
[2016-06-07] MEDS: DEXTROMETHORPHAN HBR PO SCH (09:04)
[2016-06-07] MEDS: QUINIDINE PO SCH (09:04)
--- NOTE | 2016-06-07 19:10 | CP.PCM.PN ---
Subjective - Date & Time of Evaluation Date of Evaluation: 06/07/16 Time of Evaluation: 16:00 - Subjective Subjective: no acute complaints , wants to go to subacute Objective - Vital Signs/Intake and Output Vital Signs (last 24 hours): Temp Pulse Resp BP Pulse Ox 97.9 F 79 18 157/77 H 94 L 06/07/16 16:00 06/07/16 16:00 06/07/16 16:00 06/07/16 16:00 06/07/16 16:00 - Medications Medications: Current Medications Acetaminophen (Tylenol 325mg Tab) 325 mg PO Q4 PRN PRN Reason: Fever >100.4 F Acetaminophen (Tylenol 325mg Tab) 650 mg PO Q6 PRN PRN Reason: pain scale 1-10. Last Admin: 06/04/16 00:24 Dose: 650 mg Albuterol/Ipratropium (Duoneb 3 Mg/0.5 Mg (3 Ml) Ud) 3 ml INH RQ6 PRN PRN Reason: Shortness of Breath Last Admin: 06/05/16 21:46 Dose: 3 ml Aspirin (Ecotrin) 81 mg PO HS [facility] Last Admin: 06/06/16 21:06 Dose: 81 mg Baclofen (Lioresal) 10 mg PO 2100 [facility] Last Admin: 06/06/16 20:54 Dose: 10 mg Cholecalciferol (Vitamin D) 2,000 iu PO DAILY [facility] Last Admin: 06/07/16 09:05 Dose: 2,000 iu Folic Acid (Folic Acid) 1 mg PO DAILY [facility] Last Admin: 06/07/16 09:04 Dose: 1 mg Guaifenesin (Robitussin) 100 mg PO Q6 PRN PRN Reason: Cough Last Admin: 05/31/16 21:50 Dose: 100 mg Home Med (Dalfampridine [Ampyra]) 10 mg PO Q12 [facility] Last Admin: 06/07/16 09:03 Dose: 10 mg Home Med (Solifenacin Succinate [Vesicare]) 10 mg PO [facility] Last Admin: 06/06/16 21:08 Dose: 10 mg Home Med (Teriflunomide [Aubagio]) 14 mg PO HS [facility] Last Admin: 06/06/16 21:08 Dose: 14 mg Home Med (Dextromethorphan Hbr/Quinidine [Nuedexta 20-10 Mg Capsule]) 10 mg PO Q12 [facility] Modafinil (Provigil) 200 mg PO DAILY [facility] Nystatin (Nystop Topical Powder) 1 applic TOP 0600,1700 [facility] Ondansetron HCl (Zofran Inj) 4 mg IVP Q6 PRN PRN Reason: Nausea/Vomiting Pantoprazole Sodium (Protonix Ec Tab) 40 mg PO 0600 [facility] Last Admin: 06/07/16 06:05 Dose: 40 mg Pentoxifylline (Pentoxil) 400 mg PO DAILY [facility] Sertraline HCl (Zoloft) 150 mg PO HS [facility] Last Admin: 06/06/16 21:05 Dose: 150 mg - Labs Labs: 05/30/16 05:20 05/30/16 05:20 - Head Exam Head Exam: ATRAUMATIC, NORMAL INSPECTION, NORMOCEPHALIC - ENT Exam ENT Exam: Mucous Membranes Moist, Normal Exam - Respiratory Exam Respiratory Exam: Clear to Ausculation Bilateral, NORMAL BREATHING PATTERN - GI/Abdominal Exam GI & Abdominal Exam: Normal Bowel Sounds - Exam External exam: NORMAL EXTERNAL EXAM - Extremities Exam Extremities Exam: Normal Capillary Refill, Normal Inspection - Back Exam Back Exam: NORMAL INSPECTION - Neurological Exam Neurological Exam: Alert, Awake Neuro motor strength exam: Left Upper Extremity: 3, Right Upper Extremity: 3, Left Lower Extremity: 3, Right Lower Extremity: 2/1 - Psychiatric Exam Psychiatric exam: Normal Affect, Normal Mood Assessment and Plan (1) Multiple sclerosis exacerbation Assessment & Plan: physical and occupational therapy for subacute rehab at [facility] care Status: Acute (2) Urinary tract infection Status: Acute
[2016-06-07] MEDS ORDERED: DEXTROMETHORPHAN HBR PO SCH (21:00)
[2016-06-07] MEDS ORDERED: QUINIDINE PO SCH (21:00)
[2016-06-07] MEDS: TERIFLUNOMIDE 14 MG PO SCH (21:30)
[2016-06-08] MEDS: Pantoprazole 40 mg EC Tab PO SCH (06:25)
[2016-06-08 08:11] VITALS: RESP 19; O2SAT 97
--- NOTE | 2016-06-08 12:02 | CP.PCM.PN ---
Subjective - Date & Time of Evaluation Date of Evaluation: 06/08/16 Time of Evaluation: 09:00 - Subjective Subjective: no acute complaints of pain Objective - Vital Signs/Intake and Output Vital Signs (last 24 hours): Temp Pulse Resp BP Pulse Ox 97.3 F L 90 19 138/71 97 06/08/16 08:09 06/08/16 08:09 06/08/16 08:09 06/08/16 08:09 06/08/16 08:09 - Medications Medications: Current Medications Acetaminophen (Tylenol 325mg Tab) 325 mg PO Q4 PRN PRN Reason: Fever >100.4 F Acetaminophen (Tylenol 325mg Tab) 650 mg PO Q6 PRN PRN Reason: pain scale 1-10. Last Admin: 06/04/16 00:24 Dose: 650 mg Albuterol/Ipratropium (Duoneb 3 Mg/0.5 Mg (3 Ml) Ud) 3 ml INH RQ6 PRN PRN Reason: Shortness of Breath Last Admin: 06/05/16 21:46 Dose: 3 ml Aspirin (Ecotrin) 81 mg PO HS [facility] Last Admin: 06/07/16 21:30 Dose: 81 mg Baclofen (Lioresal) 10 mg PO 2100 [facility] Last Admin: 06/07/16 21:30 Dose: 10 mg Cholecalciferol (Vitamin D) 2,000 iu PO DAILY [facility] Last Admin: 06/08/16 09:15 Dose: 2,000 iu Folic Acid (Folic Acid) 1 mg PO DAILY [facility] Last Admin: 06/08/16 09:14 Dose: 1 mg Guaifenesin (Robitussin) 100 mg PO Q6 PRN PRN Reason: Cough Last Admin: 05/31/16 21:50 Dose: 100 mg Home Med (Dalfampridine [Ampyra]) 10 mg PO Q12 [facility] Last Admin: 06/08/16 09:15 Dose: 10 mg Home Med (Solifenacin Succinate [Vesicare]) 10 mg PO [facility] Last Admin: 06/07/16 21:30 Dose: 10 mg Home Med (Teriflunomide [Aubagio]) 14 mg PO HS [facility] Last Admin: 06/07/16 21:30 Dose: 14 mg Home Med (Dextromethorphan Hbr/Quinidine [Nuedexta 20-10 Mg Capsule]) 10 mg PO Q12 [facility] Modafinil (Provigil) 200 mg PO DAILY [facility] Last Admin: 06/08/16 09:17 Dose: 200 mg Nystatin (Nystop Topical Powder) 1 applic TOP 0600,1700 [facility] Last Admin: 06/08/16 06:25 Dose: 1 applic Ondansetron HCl (Zofran Inj) 4 mg IVP Q6 PRN PRN Reason: Nausea/Vomiting Pantoprazole Sodium (Protonix Ec Tab) 40 mg PO 0600 [facility] Last Admin: 06/08/16 06:25 Dose: 40 mg Pentoxifylline (Pentoxil) 400 mg PO DAILY [facility] Last Admin: 06/08/16 09:14 Dose: 400 mg Sertraline HCl (Zoloft) 150 mg PO HS [facility] Last Admin: 06/07/16 21:30 Dose: 150 mg - Labs Labs: 05/30/16 05:20 05/30/16 05:20 - Head Exam Head Exam: ATRAUMATIC, NORMAL INSPECTION, NORMOCEPHALIC - Eye Exam Eye Exam: EOMI, Normal appearance, PERRL Pupil Exam: NORMAL ACCOMODATION - ENT Exam ENT Exam: Mucous Membranes Moist, Normal Exam - Respiratory Exam Respiratory Exam: NORMAL BREATHING PATTERN - Cardiovascular Exam Cardiovascular Exam: REGULAR RHYTHM - GI/Abdominal Exam GI & Abdominal Exam: Soft, Normal Bowel Sounds - Rectal Exam Rectal Exam: NORMAL INSPECTION - Exam External exam: NORMAL EXTERNAL EXAM - Extremities Exam Extremities Exam: Normal Capillary Refill, Normal Inspection - Back Exam Back Exam: NORMAL INSPECTION - Neurological Exam Neurological Exam: Alert, Awake Neuro motor strength exam: Left Upper Extremity: 4, Right Upper Extremity: 2/1, Left Lower Extremity: 4, Right Lower Extremity: 2/1 - Psychiatric Exam Psychiatric exam: Normal Affect, Normal Mood - Skin Skin Exam: Dry, Normal Color Assessment and Plan (1) Multiple sclerosis exacerbation Assessment & Plan: physical, occupational and rec therapy patinet for subacute rehab at [facility] care discussed dc planning with patinet Status: Acute (2) Urinary tract infection Status: Acute
[2016-06-08 15:58] VITALS: BP 114/68; PULSE 78; TEMP 97.6
--- NOTE | 2016-06-27 15:40 | DS ---
The patient discharged to [facility] via stretcher transfer to [facility]. The patient was doing well, further therapy at that facility. The patient received recreational the rapy and encouraged to participate in 1:1 group therapy sessions 3-5 times to improve arousal, mood a nd leisure. For occupational therapy, patient was strength right side 3, left side 4. The patient's upper body bathing, lower body set up supervision. Toileting max assist. Grooming supervision. Se lf feeding supervision setup. Functional mobility: Toilet transfers, contact guard. Rolling to the right and left, supervision. Tub transfers were min assist. Balance static supervision, dynamic barger pervision. Static standing contact guard, dynamic contact guard to min assist. For physical therapy , patient also did well. Mobility, transfers supine to sit, supervision. Sit to stand supervision, verbal cues, contact guard, sit to stand, verbal cues, contact guard. Ambulation rolling walker, con tact guard short distances with close supervision regular walker requiring contact guard assist for l vicente distances. Stairs needed min assist. The patient is discharged to a subacute. At the time of d ischarge required supervision for bed mobility, supervision to contact guard for transfers, close sup ervision and contact guard for ambulation. Further therapy, physical, occupational therapy, recreati on therapy and case management and social sciences chair. Follow up at the subacute facility and medical [facility] as well. Edgar Raygoza MD cc: [id number] TT: 06/27/2016 15:39:34 sn
== END 2016-06-08 16:00 | DRG 59 ==
PROVIDERS: ADMIT Internal Medicine; ATTEND Internal Medicine
PROC: F07Z9FZ Gait Training/Functional Ambulation Treatment using Assistive, Adaptive, Supportive or Protective Equipment (ICD-10-PCS; principal; 2016-05-22)
PROC: F08Z2FZ Grooming/Personal Hygiene Treatment using Assistive, Adaptive, Supportive or Protective Equipment (ICD-10-PCS; 2016-05-22)
PROC: F07M6FZ Therapeutic Exercise Treatment of Musculoskeletal System - Whole Body using Assistive, Adaptive, Supportive or Protective Equipment (ICD-10-PCS; 2016-05-22)
PROC: 0HBRXZZ Excision of Toe Nail, External Approach (ICD-10-PCS; 2016-06-06)
PROC: 0HBRXZZ Excision of Toe Nail, External Approach (ICD-10-PCS; 2016-06-06)
PROC: 0HBRXZZ Excision of Toe Nail, External Approach (ICD-10-PCS; 2016-06-06)
PROC: 0HBRXZZ Excision of Toe Nail, External Approach (ICD-10-PCS; 2016-06-06)
PROC: 0HBRXZZ Excision of Toe Nail, External Approach (ICD-10-PCS; 2016-06-06)
PROC: 0HBRXZZ Excision of Toe Nail, External Approach (ICD-10-PCS; 2016-06-06)
PROC: 0HBRXZZ Excision of Toe Nail, External Approach (ICD-10-PCS; 2016-06-06)
PROC: 0HBRXZZ Excision of Toe Nail, External Approach (ICD-10-PCS; 2016-06-06)
PROC: 0HBRXZZ Excision of Toe Nail, External Approach (ICD-10-PCS; 2016-06-06)
PROC: 0HBRXZZ Excision of Toe Nail, External Approach (ICD-10-PCS; 2016-06-06)
DX: G35 Multiple sclerosis (principal); N39.0 Urinary tract infection, site not specified; M81.0 Age-related osteoporosis without current pathological fracture; L60.8 Other nail disorders; N18.9 Chronic kidney disease, unspecified; Z88.6 Allergy status to analgesic agent; Z91.040 Latex allergy status; Z87.01 Personal history of pneumonia (recurrent)

== ENCOUNTER 2016-07-09 12:43 | Emergency (ER) | payer MEDICARE, OTHER ==
[2016-07-09 12:43] VITALS: BMI 24.7
[2016-07-09] MEDS ORDERED: Sodium Chloride 0.9% 500 ML IV ONE (13:32)
--- NOTE | 2016-07-09 13:45 | ED PDOC ---
HPI: General Adult Time Seen by Provider: 07/09/16 13:19 Chief Complaint (Nursing): Cough, Cold, Congestion Chief Complaint (Provider): chest congestion History Per: Patient History/Exam Limitations: no limitations Additional Complaint(s): 65yo female w/ Hx MS was discharged from this hospital 1 week ago after admission for UTI, pneumonia, is coming in complaining of chest congestion and non-productive cough. No fever, shortness of breath, chest pain (other than when coughing). No abdominal pain, dysuria, nausea, vomit fever. Past Medical History Reviewed: Historical Data, Nursing Documentation, Vital Signs Vital Signs: Last Vital Signs Temp 98.5 F 07/09/16 12:49 Pulse 93 H 07/09/16 12:49 Resp 20 07/09/16 12:49 BP 145/90 07/09/16 12:49 Pulse Ox 95 07/09/16 17:15 - Medical History PMH: Fractures ("MY WHOLE BACK-I FALL ALOT-NO SURGERY"), Multiple Sclerosis ( "SECONDARY PROGRESSIVE"), Osteoporosis, Pneumonia (X2-LAST TIME WAS ABOUT 20YRS. AGO), Chronic Kidney Disease - Surgical History Surgical History: No Surg Hx - Family History Family History: States: Unknown Family Hx - Home Medications Home Medications: Ambulatory Orders Medication Instructions Recorded Dalfampridine [Ampyra] 10 mg PO Q12 11/18/13 Dextromethorphan HBr/Quinidine 10 mg PO Q12 11/18/13 [Nuedexta 20-10 mg Capsule] Solifenacin Succinate [Vesicare] 10 mg PO HS 11/18/13 Aspirin [Ecotrin] 81 mg PO HS 11/17/15 Cholecalciferol (Vitamin D3) 2,000 unit PO DAILY 11/17/15 [Vitamin D3] Folic Acid 1 mg PO DAILY 11/17/15 Sertraline HCl 150 mg PO HS 11/17/15 Teriflunomide [Aubagio] 14 mg PO HS 11/17/15 Modafinil [Provigil] 200 mg PO DAILY 05/18/16 Baclofen [Lioresal] 10 mg PO TID 05/22/16 [place] 1 tab PO DAILY 05/22/16 Acetaminophen [Tylenol 325mg tab] 325 mg PO Q4 PRN #0 tab 04/14/17 Acetaminophen [Tylenol 325mg tab] 650 mg PO Q6 PRN #0 tab 06/08/16 Albuterol/Ipratropium [Duoneb 3 3 ml INH RQ6 PRN #0 neb 06/08/16 mg/0.5 mg (3 ml) UD] Baclofen [Lioresal] 10 mg PO 2100 tab 06/08/16 Nystatin [Nystop Topical Powder] 1 applic TOP 0600,1700 bottle 06/08/16 Pantoprazole [Protonix EC Tab] 40 mg PO 0600 ect 06/08/16 Pentoxifylline [Pentoxil] [address] 06/08/16 - Allergies Allergies/Adverse Reactions: Allergies Allergy/AdvReac Type Severity Reaction Status Date / Time morphine Allergy Severe SHORTNESS Verified 05/22/16 16:59 OF BREATH latex Allergy Intermediate RASH Verified 05/22/16 16:59 acetaminophen Allergy SHORTNESS Verified 07/09/16 12:48 [From Darvocet-N] OF BREATH codeine Allergy SHORTNESS Verified 07/09/16 12:48 OF BREATH propoxyphene [From Darvon] Allergy SHORTNESS Verified 07/09/16 12:48 OF BREATH Review of Systems Constitutional: Negative for: Fever Cardiovascular: Negative for: Chest Pain, Palpitations, Paroxysmal Noc. Dyspnea Respiratory: Positive for: Cough. Negative for: Shortness of Breath, SOB with Exertion, Sputum, Wheezing Gastrointestinal: Negative for: Nausea, Vomiting, Abdominal Pain, Diarrhea, Constipation Genitourinary Female: Negative for: Dysuria Musculoskeletal: Negative for: Neck Pain Skin: Negative for: Rash Physical Exam - Reviewed Nursing Documentation Reviewed: Yes Vital Signs Reviewed: Yes - Physical Exam Appears: Positive for: Well, Non-toxic, No Acute Distress Head Exam: Positive for: ATRAUMATIC, NORMAL INSPECTION, NORMOCEPHALIC Skin: Positive for: Warm, Dry ENT: Negative for: Pharyngeal Erythema, Tonsillar Exudate Neck: Positive for: Normal, Supple Cardiovascular/Chest: Positive for: Regular Rate, Rhythm Respiratory: Positive for: Normal Breath Sounds. Negative for: Rales, Rhonchi, Wheezing Gastrointestinal/Abdominal: Positive for: Normal Exam, Bowel Sounds, Soft. Negative for: Tenderness Back: Negative for: L CVA Tenderness, R CVA Tenderness - Laboratory Results Result Diagrams: 07/09/16 13:45 05/15/17 13:45 - ECG O2 Sat by Pulse Oximetry: 95 (RA) Pulse Ox Interpretation: Normal Medical Decision Making Medical Decision Making: Patient is presenting with symptoms typical of uri. She is well appearing with normal vitals and unlikely pna. However, due to recent hospitalization and MS, will get labs, ua and xray 5:29PM Labs and ua negative. Cxray negative. Patient feels well. She wants to go home. She is refusing motrin or toradol. She was instructed to rest and increase fluids. Will follow up with PMD this weeka dn return with any worsening symptoms. Disposition - Clinical Impression Clinical Impression: Upper respiratory infection - Disposition Disposition: Routine/Home Disposition Time: 17:14 Condition: GOOD Additional Instructions: Follow up with PMD within 2 days. Return to ED if condition worsens. Instructions: Upper Respiratory Infection (ED) Additional Comments - Additional Comments Additional Comments: Scribe Attestation Documented by Terence Klein acting as a scribe for Tal Clemons MD. Provider Attestation: All medical record entries made by the Scribe were at my direction and personally dictated by me. I have reviewed the chart and agree that the record accurately reflects my personal performance of the history, physical exam, medical decision making, and the department course for this patient. I have also personally directed, reviewed, and agree with the discharge instructions and disposition.
[2016-07-09 14:00] LABS: BASO # 0.1 K/uL (0.0-0.2); BASO % 0.9 % (0.0-2.0); EOS # 0.2 K/uL (0.0-0.7); EOS % 3.3 % (0.0-4.0); HEMATOCRIT 32.6 % (34.0-47.0); LYMPH # 1.1 K/uL (1.0-4.3); LYMPH % 18.5 % (20.0-40.0); MEAN CORPUSCULAR HEMOGLOBIN 20.5 pg (27.0-31.0); MEAN CORPUSCULAR HGB CONC 31.5 g/dL (33.0-37.0); MEAN PLATELET VOLUME 10.7 fl (7.2-11.7); MONO # 0.7 K/uL (0.0-0.8); MONO % 11.1 % (0.0-10.0); NEUT % 66.2 % (50.0-75.0); NRBC % 0.1 % (0.0-0.0); RED CELL DISTRIBUTION WIDTH 16.2 % (11.5-14.5)
[2016-07-09 14:06] LABS: VENOUS BLOOD GAS BASE EXCESS 3.8 mmol/L (0.0-2.0); VENOUS BLOOD GAS PCO2 55 mmHg (40-60); VENOUS BLOOD PH 7.35 (7.32-7.43)
[2016-07-09 14:21] LABS: ALB/GLOB RATIO 1.4 (1.0-2.1); ALKALINE PHOSPHATASE 64 U/L (38-126); ALT/SGPT 30 U/L (9-52); AST/SGOT 26 U/L (14-36); BILIRUBIN,TOTAL 0.3 mg/dl (0.2-1.3); BLOOD UREA NITROGEN 11 mg/dl (7-17); CARBON DIOXIDE 27 mmol/L (22-30); CHLORIDE 101 mmol/L (98-107); GFR AFRICAN-AMERICAN > 60; GLUCOSE,RANDOM 91 mg/dL (65-105); POTASSIUM 4.2 MMOL/L (3.6-5.0); SODIUM 136 mmol/l (132-148); TOTAL PROTEIN 6.9 G/DL (6.3-8.2)
--- NOTE | 2016-07-09 14:22 | RAD ---
HISTORY: chest congestion COMPARISON: Chest x-ray performed 05/17/16 TECHNIQUE: Chest PA and lateral FINDINGS: LUNGS: Mild left basilar atelectasis or scarring. Please note that chest x-ray has limited sensitivity for the detection of pulmonary masses. PLEURA: No significant pleural effusion identified. No definite pneumothorax . CARDIOVASCULAR: Heart size appears top normal. Atherosclerotic calcifications of the aortic knob. OSSEOUS STRUCTURES: Osseous demineralization. Degenerative changes. VISUALIZED UPPER ABDOMEN: Unremarkable. OTHER FINDINGS: None. IMPRESSION: Mild left basilar atelectasis or scarring.
[2016-07-09 16:59] LABS: RBC URINE 1 /hpf (0-3); URINE BACTERIA RARE (<OCC); URINE BILIRUBIN NEGATIVE (NEGATIVE); URINE BLOOD NEGATIVE (NEGATIVE); URINE COLOR YELLOW (YELLOW); URINE GLUCOSE (UA) NEG (Normal); URINE KETONE NEGATIVE (NEGATIVE); URINE LEUKOCYTE ESTERASE NEG Leu/uL (Negative); URINE PROTEIN NEGATIVE (NEGATIVE); URINE UROBILINOGEN 0.2-1.0 mg/dL (0.2-1.0); WBC URINE < 1 /hpf (0-5)
[2016-07-09 20:02] VITALS: BP 147/73; PULSE 78; RESP 17; TEMP 98; O2SAT 97
== END 2016-07-09 20:26 | disposition home or self-care (01) ==
LOC: H.ER 12:43
DX: J06.9 Acute upper respiratory infection, unspecified (principal); N18.9 Chronic kidney disease, unspecified; Z79.82 Long term (current) use of aspirin; R09.89 Other specified symptoms and signs involving the circulatory and respiratory systems
CPT/HCPCS: 71020; 80053; 81003; 82553; 82803; 84484; 85025; 87040; 87086; 99283; J7040